=== PATIENT | female | born 1990 | race Caucasian/White ===

== ENCOUNTER → 2020-06-06 15:30 | Outpatient (BNVA) | payer OTHER, SELFPAY | PROVIDERS: PCP Internal Medicine; Referring Provider Internal Medicine; Visit Provider Student in an Organized Health Care Education/Training Program | DX: M79.7 Fibromyalgia (principal) | CPT/HCPCS: 99212 ==

== ENCOUNTER 2020-11-28 12:47 | Outpatient (REF) | payer OTHER, SELFPAY ==
--- NOTE | ~2020-11-28 | US_ITS ---
EXAMINATION: US DIAGNOSTIC ULTRASOUND BREAST, LEFT CLINICAL INFORMATION: asymmetric left breast density inferiorly COMPARISON: ultrasound of March 23, 2016 and December 23, 2015. TECHNIQUE: Ultrasound of the breast is performed with real-time franco scale imaging and color Doppler. FINDINGS: Right breast ultrasound from the 7 to 12:00 position demonstrates numerous small simple cysts. At the 9:00 position 10 cm from the nipple there is a 5 x 3 x 8 mm hypoechoic but solid-appearing well-circumscribed lesion with some distal sound enhancement and no distal sound shadowing. The lesion is wider than it is tall. No internal vascularity is identified. This has the appearance of a fibroadenoma. At the 10:00 position 4 cm from nipple there is a well-circumscribed hypoechoic lesion with some echoes within it with the appearance of a complex cyst. There is a smooth back wall with increased through sound transmission. No sound shadowing is identified. No internal vascularity is seen. This measures approximately 7 x 8 x 6 mm in size. Targeted left breast ultrasound did not demonstrate any abnormal cystic or solid mass. No region of abnormal distal sound shadowing appreciated. Six-month follow-up ultrasound of the right breast is recommended. Results are provided to the patient at time of visit by the technologist. US/US breast LT limited IMPRESSION: Probable small right breast fibroadenoma and complex cyst. 6 month follow-up ultrasound is recommended. ASSESSMENT: BI-RADS 3: Probably Benign RECOMMENDATION: Diagnostic right breast ultrasound in 6 months.
--- NOTE | ~2020-11-28 | MM_ITS ---
EXAMINATION: MM DIAGNOSTIC DIGITAL TOMOSYNTHESIS, BILATERAL US BREAST, BILATERAL CLINICAL INFORMATION: Mastodynia The lifetime risk of breast cancer based on the Tyrer-Cuzick Model is 7.5%. COMPARISON: Mammography: No mammography. Ultrasound studies dating back to 12/23/2015. TECHNIQUE: Digital breast tomosynthesis is performed in both the craniocaudal and mediolateral oblique views along with computer-aided detection (CAD). Synthesized 2D images are generated from the tomosynthesis. Bilateral targeted breast ultrasound. FINDINGS: The breasts are extremely dense, which lowers the sensitivity of mammography (ACR BI-RADS breast composition category D). There are no significant masses, abnormal calcifications, or other abnormalities. There is a region of asymmetric density seen inferior aspect of the left breast for which ultrasound was performed. Right breast ultrasound from the 7 o'clock to 12 o'clock position demonstrates numerous small simple cysts. At the 9 o'clock position, 10 cm from the nipple, there is a 5 x 3 x 8 mm hypoechoic but solid-appearing well-circumscribed lesion with some distal sound enhancement and no distal sound shadowing. The lesion is wider than it is tall. No internal vascularity is identified. This has the appearance of a fibroadenoma. At the 10 o'clock position, 4 cm from nipple, there is a well-circumscribed hypoechoic lesion with some echoes within it with the appearance of a complex cyst. There is a smooth back wall with increased through sound transmission. No sound shadowing is identified. No internal vascularity is seen. This measures approximately 7 x 8 x 6 mm in size. Targeted left breast ultrasound did not demonstrate any abnormal cystic or solid mass. No region of abnormal distal sound shadowing appreciated. Six-month followup ultrasound of the right breast is recommended. Results are provided to the patient at time of visit by the technologist. MM/MM tomosynthesis diagnostic BI IMPRESSION: Probable small right breast fibroadenoma and complex cyst. 6 month followup ultrasound is recommended. ASSESSMENT: BI-RADS 3: Probably benign. RECOMMENDATION: Diagnostic right breast ultrasound in 6 months. This patient's information was entered into a reminder system with a target due date for their next mammogram.
--- NOTE | ~2020-11-28 | US_ITS ---
EXAMINATION: TARGETED RIGHT BREAST ULTRASOUND CLINICAL INFORMATION: Mastodynia COMPARISON: Ultrasound studies dating back to December 23, 2015 TECHNIQUE: Targeted right breast ultrasound FINDINGS: Right breast ultrasound from the 7 to 12:00 position demonstrates numerous small simple cysts. At the 9:00 position 10 cm from the nipple there is a 5 x 3 x 8 mm hypoechoic but solid-appearing well-circumscribed lesion with some distal sound enhancement and no distal sound shadowing. The lesion is wider than it is tall. No internal vascularity is identified. This has the appearance of a fibroadenoma. At the 10:00 position 4 cm from nipple there is a well-circumscribed hypoechoic lesion with some echoes within it with the appearance of a complex cyst. There is a smooth back wall with increased through sound transmission. No sound shadowing is identified. No internal vascularity is seen. This measures approximately 7 x 8 x 6 mm in size. Targeted left breast ultrasound did not demonstrate any abnormal cystic or solid mass. No region of abnormal distal sound shadowing appreciated. Six-month follow-up ultrasound of the right breast is recommended. Results are provided to the patient at time of visit by the technologist. US/US breast RT complete IMPRESSION: Probable small right breast fibroadenoma and complex cyst. 6 month follow-up ultrasound is recommended. ASSESSMENT: BI-RADS 3: Probably Benign RECOMMENDATION: Diagnostic right breast ultrasound in 6 months.
== END 2020-11-28 12:48 | disposition home or self-care (01) ==
LOC: HO.MAMMO 12:47
PROVIDERS: PCP Internal Medicine; Visit Provider Internal Medicine
DX: R92.2 Inconclusive mammogram (principal); N64.4 Mastodynia
CPT/HCPCS: 76641; 76642; 77062; 77066

== ENCOUNTER 2021-07-08 10:44 | Outpatient (REF) | payer OTHER, SELFPAY ==
--- NOTE | ~2021-07-08 | US_ITS ---
EXAMINATION: US DIAGNOSTIC ULTRASOUND BREAST, RIGHT CLINICAL INFORMATION: 30-year-old for short interval six-month follow-up probable benign nodule right breast 9:00 and 10:00 position, respectively. No known family history breast cancer. TC score 8%. COMPARISON: Mammography and targeted right breast ultrasound 11/28/2020 (BI-RADS 3). Targeted right breast ultrasound 03/23/2016 (BI-RADS 2). TECHNIQUE: Ultrasound right breast is targeted to the upper outer breast. Grayscale imaging and color Doppler are performed without and with harmonics. FINDINGS: Solid nodule 9:00 position 8-10 cm from nipple is stable in size and shape measuring 8 mm in greatest dimension. This may represent fibroadenoma and will be reassessed again in 6 months (1 year follow-up surveillance). Probable complicated cyst 10:00 position 4 cm from nipple is also stable, largest dimension 8 mm. This is circumscribed and hypoechoic with scattered echogenic foci, smooth araya, and increased through-transmission of sound. No associated color flow. They will be reassessed again in 6 months (1 year follow-up surveillance). Incidental 3 mm cyst is also noted 8:00 position measuring under 5 mm. No follow-up required. No new finding. No significant changes. Results are provided to the patient at time of visit by the cutter inspector. US/US breast RT limited IMPRESSION: Solid nodule 9:00 position and probable complicated cyst 10:00 position, both just under 1 cm, stable from prior diagnostic targeted ultrasound. ASSESSMENT: BI-RADS 3: Probably Benign RECOMMENDATION: Targeted right breast ultrasound in 6 months (1 year follow-up surveillance). This patient's information was entered into a reminder system with a target due date for their next breast imaging.
== END 2021-07-08 10:45 | disposition home or self-care (01) ==
LOC: HO.MAMMO 10:44
PROVIDERS: Visit Provider Internal Medicine
DX: R92.2 Inconclusive mammogram (principal)
CPT/HCPCS: 76642

== ENCOUNTER 2021-11-24 10:43 | Outpatient (REF) | payer OTHER, SELFPAY ==
[2021-11-24 12:10] LABS: Alanine Aminotransferase 10 U/L (0-31); Albumin Level 4.2 g/dL (3.5-5.0); Alkaline Phosphatase 56 U/L (39-117); Anion Gap 16 (12-20); Aspartate Amino Transferase 18 U/L (5-31); Bilirubin Total 0.5 mg/dL (0.0-1.0); Blood Urea Nitrogen 6 mg/dL (9-16); Calcium 9.1 mg/dL (8.4-10.2); Carbon Dioxide 18 mmol/L (22-29); Chloride 106 mmol/L (96-108); Cholesterol 204 mg/dL; Estimated Glomerular Filt Rate > 60; Glucose Fasting 75 mg/dL (60-99); HDL Cholesterol 47 mg/dL; LDL Cholesterol Calculated 137 mg/dl; Potassium 4.2 mmol/L (3.3-5.1); Sodium 136 mmol/L (135-145); Total Protein 7.3 g/dL (6.5-8.0); Triglycerides 104 mg/dL
== END 2021-11-24 10:44 | disposition home or self-care (01) ==
LOC: HO.LAB 10:43
PROVIDERS: PCP Internal Medicine; Visit Provider Internal Medicine
DX: Z00.00 Encounter for general adult medical examination without abnormal findings (principal)
CPT/HCPCS: 36415; 80053; 80061

== ENCOUNTER 2022-02-06 13:39 | Outpatient (REF) | payer OTHER, SELFPAY ==
--- NOTE | ~2022-02-06 | US_ITS ---
EXAMINATION: US DIAGNOSTIC BREAST, RIGHT CLINICAL INFORMATION: Right breast followup lesions at the 9 o'clock and 10 o'clock positions. COMPARISON: 07/08/2021 and studies dating back to 11/28/2020. TECHNIQUE: Ultrasound of the breast is performed with real-time franco scale imaging and color Doppler. FINDINGS: At the 10 o'clock position of the right breast approximately 4 cm from the nipple, there is a hypoechoic well circumscribed density with minimal through sound transmission and no distal sound shadowing. No internal vascularity is identified. This measures approximately 5 x 4 x 5 mm in size. This is unchanged in appearance to previous studies. At the 9 o'clock position of the right breast approximately 8 cm from the nipple, there is again noted to be a hypoechoic circumscribed lesion with increased through sound transmission and no distal sound shadowing. No internal vascularity is identified. Both lesions may be complex cysts or solid structures. Continued 6 month followup examination suggested to ensure stability out to 2 years. Results are discussed with the patient at time of visit. US/US breast RT limited IMPRESSION: Stable appearance of right breast nodules with ultrasound. Six month followup study is suggested. ASSESSMENT: BI-RADS 3: Probably Benign. RECOMMENDATION: Diagnostic ultrasound in 6 months. This patient's information was entered into a reminder system with a target due date for their next mammogram.
== END 2022-02-06 13:40 | disposition home or self-care (01) ==
LOC: HO.MAMMO 13:39
PROVIDERS: PCP Internal Medicine; Visit Provider Internal Medicine
DX: N63.15 Unspecified lump in the right breast, overlapping quadrants (principal)
CPT/HCPCS: 76642

== ENCOUNTER 2022-05-20 14:05 | Outpatient (REF) | payer OTHER, SELFPAY ==
[2022-05-20 15:22] LABS: Influenza A PCR NEGATIVE (Negative); Influenza B PCR NEGATIVE (Negative); Resp Syncy Virus RNA Qual PCR NEGATIVE (Negative); SARS COV2 PCR INHOUSE POSITIVE (Negative)
== END 2022-05-20 14:06 | disposition home or self-care (01) ==
LOC: HO.LNP 14:05
PROVIDERS: Visit Provider Internal Medicine
DX: Z20.822 Contact with and (suspected) exposure to COVID-19 (principal); R09.89 Other specified symptoms and signs involving the circulatory and respiratory systems
CPT/HCPCS: 0241U

== ENCOUNTER 2022-08-07 12:56 | Outpatient (REF) | payer OTHER, SELFPAY ==
--- NOTE | ~2022-08-07 | US_ITS ---
EXAMINATION: US DIAGNOSTIC ULTRASOUND BREAST, RIGHT CLINICAL INFORMATION: 31-year-old for follow-up probable benign nodules right breast 9:00 and 10:00 positions, initially noted at diagnostic exam for mastodynia. No known family history breast cancer. TC score 8%. COMPARISON: Mammography 11/28/2020, right breast ultrasound 11/28/2020, 07/08/2021, 02/06/2022. TECHNIQUE: Ultrasound right breast is targeted to the inner quadrants using grayscale imaging and color Doppler without and with harmonics. FINDINGS: Solid nodule suspected fibroadenoma 9:00-10:00 position approximately 8 cm from the nipple is similar in size and contour to prior exams, measuring 0.8 cm in greatest dimension. Complicated cyst 10:00-11:00 position anterior breast is decreased in size measuring 0.5 cm compared with prior measurement 0.8 cm. There is no associated color flow. There is increased through-transmission of sound. There is a new probable benign solid nodule not previously described anterior 9:00 position 4 cm from nipple measuring approximately 0.5 cm. Margins are smooth. This may represent a fibroadenoma and will be admitted to follow-up surveillance. Results are discussed with the patient at time of visit with assistance of an certified court interpreter. US/US breast RT limited IMPRESSION: -Stable nodule 9:00-10:00 position right breast 0.8 cm, probable fibroadenoma. -Mildly complicated cyst 10:00-11:00 position decreased in size, now 0.5 cm. -Benign-appearing nodule anterior 9:00 position, 0.5 cm not previously described, probable fibroadenoma. ASSESSMENT: BI-RADS 3: Probably Benign RECOMMENDATION: Right breast ultrasound in 6 months to complete long-term surveillance of 2 nodules for follow-up and also reassess probable benign nodule not previously described. This patient's information was entered into a reminder system with a target due date for their next breast imaging.
== END 2022-08-07 12:57 | disposition home or self-care (01) ==
LOC: HO.MAMMO 12:56
PROVIDERS: PCP Internal Medicine; Visit Provider Internal Medicine
DX: N63.11 Unspecified lump in the right breast, upper outer quadrant (principal)
CPT/HCPCS: 76642

== ENCOUNTER 2022-12-07 09:54 | Outpatient (AMB) | payer OTHER, SELFPAY ==
[2022-12-07 10:02] VITALS: BP 112/74; BMI 23.2
--- NOTE | 2022-12-07 10:02 | A.OFFPC_ITS ---
Vital Signs 12/07/22 10:02 Height 5 ft 2 in Weight 127 lb BMI 23.2 BP 112/74 Blood Pressure Location Lt brachial Position Sitting Intake Visit Reasons: physical exam Intake Note: Patient here for a physical exam, increase in medication for fibromyalgia, headaches, dry skin, trouble sleeping, back pain, work note, cough, breast discomfort [place]yer Required: No Accompanied by: Self / Same As Patient Allergies pregabalin Allergy (Intermediate, Verified 12/07/22 10:20) cough tramadol Allergy (Intermediate, Verified 12/07/22 10:20) headache Medication List - Last Reconciled 12/07/22 by Nicci Agudelo MD meloxicam 7.5 mg PO DAILY PRN 90 days norgestimate-ethinyl estradiol 0.25-35 mg-mcg (Sprintec (28)) 1 tab PO DAILY Tobacco use date assessed: 12/07/22 Dental Screening Dental Screen Date: 12/07/22 Did you have a dental visit in the last 12 months?: Yes Did you have a dental problem in the last 6 months where you did not have access to dental care?: No Was dental information given to patient?: Patient has dentist HPI HPI Comments History of Present Illness Details This is a 32-year-old female with mild recurrent major depression that comes for her physical exam. Depression has been in remission. Last Pap smear was 2022 at [facility] and was normal as per patient. Complains of chronic headaches and would like to see neurology. Also has fibromyalgia and would like to increase meloxicam. Has some dry skin and will be referred to dermatology. Complains of thoracic spine pain, bilateral elbow and knee pain. [facility] Medical History (Updated 12/07/22 @ 10:39 by Nicci Agudelo MD) CRYSTAL (generalized anxiety disorder) Mild recurrent major depression Family history of diabetes mellitus Polyarthralgia Breast pain, right Fibromyalgia Surgical History History of removal of cyst History of section History of tubal ligation Family History Father Hypertension Mother Heart disease CVD (cardiovascular disease) Diabetes Maternal Grandmother Diabetes Chronic mental illness Maternal Grandfather No problems noted. Paternal Grandmother No problems noted. Paternal Grandfather No problems noted. Social History Housing: Apartment Alcohol intake: never Patient Tobacco Use Status: Never used Tobacco e-Cigarette/Vaping Use: Never Used Second Hand Smoke Exposure: No service: No Current occupational status: employed Current occupational exposures/hazards: No Cognitive needs: No Hearing needs: No Vision needs: Yes (Glasses) Questionnaire PHQ-9 Over the last 2 weeks, how often have you been bothered by any of the following problems? 1. Little interest or pleasure in doing things: several days 2. Feeling down, depressed, or hopeless: several days 3. Trouble falling or staying asleep, or sleeping too much: several days 4. Feeling tired or having little energy: several days 5. Poor appetite or overeating: several days 6. Feeling bad about yourself - or that you are a failure or have let yourself or your family down: not at all 7. Trouble concentrating on things, such as reading the newspaper or watching television: not at all 8. Moving or speaking so slowly that other people could have noticed. Or the opposite - being so fidgety or restless that you have been moving around a lot more than usual: not at all 9. Thoughts that you would be better off or of hurting yourself in some way: not at all Total score: 5 Depression Screening Interpretation: Positive Depression Screening Follow-up: Existing condition 27421 - PHQ-9 Billing: Yes Source: Developed by Drs. David Gil, Regine Torre, Job Polo and colleagues, with an educational adriana from [employer]. Thrive Questionnaire Date Thrive assessed: 12/07/22 I am a: Patient What is your living situation today?: I have a steady place to live Within the past 12 months, did the food you bought not last and you didn't have the money to get more?: Never true Within the past 12 months, did you worry whether your food would run out before you got money to buy more?: Never true Do you have trouble paying for medicines?: No Do you have trouble getting transportation to medical appointments?: No Do you have trouble paying your heating and electricity bill?: No Do you have trouble taking care of your child, family member or friend?: No Do you have trouble with day-to-day activities such as bathing, preparing meals, shopping, managing finances, etc.?: No Are you currently unemployed and looking for a job?: No Are you interested in more education?: No Please select the resources that you would like help with: None Currently or been in a relationship where the following occur: no concerns reported AUDIT C Alcohol Use Questionnaire (AUDIT-C) 1. How often do you have a drink containing alcohol?: Never Total Score: 0 Score Reviewed/Action Taken: No CRYSTAL-7 AMB Questionnaire CRYSTAL-7 Date CRYSTAL - 7 assessed: 12/07/22 Feeling nervous, anxious, or on edge: 1 = Several days Not being able to stop or control worryin = Not at all Worrying too much about different things: 1 = Several days Trouble relaxin = Several days Being so restless that it is hard to sit still: 0 = Not at all Becoming easily annoyed or irritable: 1 = Several days Feeling afraid as if something awful might happen: 1 = Several days Total CRYSTAL-7 score (0-4 normal; 5-9 mild; 10-14 moderate; 15-21 severe): 5 Source: Developed by Drs. David Gil, Regine Torre, Job Polo and colleagues, with an educational adriana from [employer]. CRYSTAL-7 Assessment Billing CRYSTAL-7 Assessment Tool: CRYSTAL-7 Assessment 61065 Review of Systems Const All systems reviewed & are unremarkable except as noted in HPI and below Eyes Reports no additional complaints, Denies change in vision and Denies other visual disturbances Card Denies chest pain at rest, Denies chest pain with activity, Denies edema, Denies irregular heart rhythm, Denies claudication, Denies dyspnea, Denies dyspnea on exertion, Denies orthopnea, Denies paroxysmal nocturnal dyspnea and Denies slow heart rate Resp Denies cough, Denies dyspnea and Denies dyspnea on exertion GI Denies abdominal pain, Denies change in bowel habits, Denies excessive flatus, Denies nausea and Denies vomiting Denies urinary incontinence, Denies urinary hesitancy and Denies urinary urgency Musc Denies abnormal gait, Denies atrophy, Denies deformity and Denies limited range of motion Skin/Breast Denies bleeding lesions, Denies changing lesions and Denies rash Neuro Denies abnormal gait and Denies lack of coordination Physical exam (Primary Care) Vital Signs: Last Vital Signs BP 112/74 12/07/22 10:02 BMI result Body Mass Index 23.2 Tobacco/Smoking Status: Tobacco use Status Tobacco use date assessed 12/07/22 12/07/22 10:09 Patient Tobacco Use Status Never used Tobacco 12/07/22 10:09 e-Cigarette/Vaping Use Never Used 12/07/22 10:09 PHQ-9: PHQ-9 Score PHQ-9: Total score 5 12/07/22 10:39 Depression Screening Interpretation: Positive Depression Screening Follow-up: Existing condition Thrive Assessment: Date of Thrive Assessment Date Thrive assessed 12/07/22 12/07/22 10:09 Currently or been in a relationship where the following occur: no concerns reported Const Orientation/consciousness: patient oriented x3 HENMT Head: Yes normal to inspection, Yes normocephalic and Yes atraumatic Ears: external ears normal Eyes General: appearance normal, both eyes and all related structures Eyelids: Yes eyelids normal Conjunctivae: conjunctivae normal Neck Neck: Yes normal visual inspection and Yes supple Resp Effort & Inspection: normal respiratory effort Auscultation: clear to auscultation bilaterally Cardio Jugular venous distension: no JVD Rate: regular rate Rhythm: regular rhythm Heart sounds: S1 normal heart sound present and S2 normal heart sound present GI Inspection: Yes normal to inspection Palpation (GI): Soft to palpation and nontender Auscultation: normal bowel sounds Skin General skin exam: no rashes or lesions noted Neuro General: patient oriented x3 and no focal motor deficits Extrem General: Yes full ROM Psych Appearance: grossly normal Office Procedures Flu Questionnaire Does the patient have a severe egg allergy?: No Immunizations flu vacc [id number] 6mos up(PF) 60 mcg(15 mcgx4)/0.5 mL IM syringe Performing Provider: Nicci Agudelo MD [facility] Documented (not given) by: MARELY Nieves on 12/07/22 10:39 Reason Not Given: Patient Refused Assessment and Plan Assessment & Plan (1) Encounter for physical examination: Code(s): Z00.00 - Encounter for general adult medical examination without abnormal findings Plan: Repeat in a year (2) Mild recurrent major depression: Code(s): F33.0 - Major depressive disorder, recurrent, mild Plan: In remission Orders: Orders XR thoracic spine 2V Today M54.6 - Pain in thoracic spine Influenza [id number] Immunization Today Z23 - Encounter for immunization XR knee RT 2V Today M25.561 - Pain in right knee XR elbow LT 2V Today M25.522 - Pain in left elbow XR knee LT 2V Today M25.562 - Pain in left knee XR elbow RT 2V Today M25.521 - Pain in right elbow Referrals Neurology Referral G89.29 - Other chronic pain, R51.9 - Headache, unspecified Dermatology Referral L85.3 - Xerosis cutis Medications: New duloxetine 30 mg PO DAILY 90 caps 0RF 90 days M79.7 - Fibromyalgia guaifenesin ER (Mucinex) 600 mg PO Q12H PRN 10 tabs 0RF congestion 5 days Changed From meloxicam 7.5 mg PO DAILY 90 days PRN 90 tabs 1RF pain To meloxicam 7.5 mg PO BID PRN 180 tabs 1RF pain 90 days Coding Level of Care Code Est Pt Prev Care [id number]([id number]) Diagnoses Encounter for physical examination Z00.00 Mild recurrent major depression F33.0 Additional Codes CRYSTAL-7 Assessment Billing - CRYSTAL-7 Assessment Tool: CRYSTAL-7 Assessment 69225 ([id number]) Time Spent (min) 32
== END 2022-12-07 10:37 | disposition home or self-care (01) ==
PROVIDERS: Visit Provider Internal Medicine
DX: Z00.00 Encounter for general adult medical examination without abnormal findings (principal); F33.0 Major depressive disorder, recurrent, mild; Z23 Encounter for immunization
CPT/HCPCS: 99395

== ENCOUNTER 2022-12-07 10:53 | Outpatient (REF) | payer OTHER, SELFPAY ==
--- NOTE | ~2022-12-07 | XR_ITS ---
STUDY: Thoracic spine, bilateral elbows, bilateral knees INDICATION: Thoracic spine, bilateral elbow and knee pain COMPARISON: None TECHNIQUE: 3 view thoracic spine 3 view each elbow, 2 view each knee FINDINGS: Thoracic spine: Trace thoracolumbar scoliosis, otherwise alignment is normal. Vertebral bodies and intervertebral discs are maintained in height. Pedicles and visualized ribs are intact. No focal paravertebral soft tissue swelling seen. Subcentimeter calcification left base may be granuloma. Bilateral elbows: Alignment and articulations are normal. No fracture or dislocation bilaterally. No joint effusions. Bilateral knees: No fracture, dislocation or joint effusion bilaterally. No significant joint space narrowings. Alignment and articulations are maintained. XR/XR thoracic spine 2V IMPRESSION: Unremarkable thoracic spine, bilateral elbows and knees.
--- NOTE | ~2022-12-07 | XR_ITS ---
STUDY: Thoracic spine, bilateral elbows, bilateral knees INDICATION: Thoracic spine, bilateral elbow and knee pain COMPARISON: None TECHNIQUE: 3 view thoracic spine 3 view each elbow, 2 view each knee FINDINGS: Thoracic spine: Trace thoracolumbar scoliosis, otherwise alignment is normal. Vertebral bodies and intervertebral discs are maintained in height. Pedicles and visualized ribs are intact. No focal paravertebral soft tissue swelling seen. Subcentimeter calcification left base may be granuloma. Bilateral elbows: Alignment and articulations are normal. No fracture or dislocation bilaterally. No joint effusions. Bilateral knees: No fracture, dislocation or joint effusion bilaterally. No significant joint space narrowings. Alignment and articulations are maintained. XR/XR knee LT 2V IMPRESSION: Unremarkable thoracic spine, bilateral elbows and knees.
--- NOTE | ~2022-12-07 | XR_ITS ---
STUDY: Thoracic spine, bilateral elbows, bilateral knees INDICATION: Thoracic spine, bilateral elbow and knee pain COMPARISON: None TECHNIQUE: 3 view thoracic spine 3 view each elbow, 2 view each knee FINDINGS: Thoracic spine: Trace thoracolumbar scoliosis, otherwise alignment is normal. Vertebral bodies and intervertebral discs are maintained in height. Pedicles and visualized ribs are intact. No focal paravertebral soft tissue swelling seen. Subcentimeter calcification left base may be granuloma. Bilateral elbows: Alignment and articulations are normal. No fracture or dislocation bilaterally. No joint effusions. Bilateral knees: No fracture, dislocation or joint effusion bilaterally. No significant joint space narrowings. Alignment and articulations are maintained. XR/XR elbow RT 2V IMPRESSION: Unremarkable thoracic spine, bilateral elbows and knees.
--- NOTE | ~2022-12-07 | XR_ITS ---
STUDY: Thoracic spine, bilateral elbows, bilateral knees INDICATION: Thoracic spine, bilateral elbow and knee pain COMPARISON: None TECHNIQUE: 3 view thoracic spine 3 view each elbow, 2 view each knee FINDINGS: Thoracic spine: Trace thoracolumbar scoliosis, otherwise alignment is normal. Vertebral bodies and intervertebral discs are maintained in height. Pedicles and visualized ribs are intact. No focal paravertebral soft tissue swelling seen. Subcentimeter calcification left base may be granuloma. Bilateral elbows: Alignment and articulations are normal. No fracture or dislocation bilaterally. No joint effusions. Bilateral knees: No fracture, dislocation or joint effusion bilaterally. No significant joint space narrowings. Alignment and articulations are maintained. XR/XR knee RT 2V IMPRESSION: Unremarkable thoracic spine, bilateral elbows and knees.
--- NOTE | ~2022-12-07 | XR_ITS ---
STUDY: Thoracic spine, bilateral elbows, bilateral knees INDICATION: Thoracic spine, bilateral elbow and knee pain COMPARISON: None TECHNIQUE: 3 view thoracic spine 3 view each elbow, 2 view each knee FINDINGS: Thoracic spine: Trace thoracolumbar scoliosis, otherwise alignment is normal. Vertebral bodies and intervertebral discs are maintained in height. Pedicles and visualized ribs are intact. No focal paravertebral soft tissue swelling seen. Subcentimeter calcification left base may be granuloma. Bilateral elbows: Alignment and articulations are normal. No fracture or dislocation bilaterally. No joint effusions. Bilateral knees: No fracture, dislocation or joint effusion bilaterally. No significant joint space narrowings. Alignment and articulations are maintained. XR/XR elbow LT 2V IMPRESSION: Unremarkable thoracic spine, bilateral elbows and knees.
== END 2022-12-07 10:54 | disposition home or self-care (01) ==
LOC: HO.XRAY 10:53
PROVIDERS: PCP Internal Medicine; Visit Provider Internal Medicine
DX: M25.522 Pain in left elbow (principal); M25.521 Pain in right elbow; M25.561 Pain in right knee; M25.562 Pain in left knee; M54.6 Pain in thoracic spine
CPT/HCPCS: 72070; 73070; 73560

== ENCOUNTER 2023-03-26 09:50 | Outpatient (AMB) | payer OTHER, SELFPAY ==
--- NOTE | 2023-03-26 10:06 | A.OFFVIS_ITS ---
Intake Vital Signs 03/26/23 10:07 Height 5 ft 2 in Weight 131 lb 2 oz BMI 24.0 BP 122/74 Blood Pressure Location Rt brachial Position Sitting Pulse 76 Pulse Source Pulse Oximeter Pulse Oximetry (%) 100 Oxygen Delivery Method Room Air Intake Visit Reasons: [id number] Intake Note: Patient presents for headaches. I get constant strong headaches,everyday Allergies pregabalin Allergy (Intermediate, Verified 03/26/23 10:09) cough tramadol Allergy (Intermediate, Verified 03/26/23 10:09) headache Medication List - Last Reconciled 03/26/23 by Maddy Murray, EBENEZER duloxetine 30 mg PO DAILY 90 days guaifenesin ER (Mucinex) 600 mg PO Q12H PRN 5 days meloxicam 7.5 mg PO BID PRN 90 days norgestimate-ethinyl estradiol 0.25-35 mg-mcg (Sprintec (28)) 1 tab PO DAILY HPI HPI Comments History of Present Illness Details Right-handed 32-yr-old female presents for new pt evaluation of headache disorder. She has had headaches since childhood, but for many years she has had a constant headache, which does vary throughout the day. Pertinent patient endorsements: Fibromyalgia, neck and back pain. Memory difficulties. Weight gain Constipation Endometriosis, Depression and anxiety, Concussion x2 in early adolescents in late 20s. At age 28, had 1 episode of brief loss of consciousness x's < 5 min, associated with posturing, and postictal fatigue. No interictal tongue biting or incontinence. She was tried on an AED for some time, but is no longer on any. Sleep difficulties including difficulty initiating and maintaining sleep, but denies snoring or apneas or gasping arousals. Pertinent denies include: Denies diplopia. Denies history of clotting disorders, thyroid disease, diabetes, cardiovascular disorders. Headache questionnaire: Preceding causes? Denies any specific precipitating causes Previous work-up? Brain MRI- showed pineal cyst Typical headache characteristics: Prodrome symptoms? None Aura? Colored spots and blurry vision Pain intensity? Moderate to severe Location, quality, characteristics? Pulsating, pressure, stabbing headache in either right or left sided, temporal, right greater than left, retro-orbital, top of the head, back of the head. In rarely frontal region. Associated symptoms? Photophobia, phonophobia, allodynia, nausea, not great and space dizziness, brain fog, fatigue, activity intolerance. Focal weakness, Parethesias, Autonomic s/s? Bilateral watery eyes, droopy eyelid Postdrome? Unsure Triggers? Lack of sleep, not eating, stress, weather changes Any positional, valsalva, exertional, sexual activity triggers? Heavy lifting can increase headache pressure Menstrual triggers? In the past, but not currently Time of day? No specific time of day Duration? Daily Frequency? Daily How does headache impact your life? Interferes with daily activities Second headache type characteristics: Severe, Right greater than left unilateral shocking pain, which lasts 1-2 minutes. It occurs 2-3 times per week. Current acute medication use/interventions: Ibuprofen 400 mg q.h.s. and most days as well. Previous acute medication use: Naproxen caused GI upset. Tramadol caused headache. Current preventative medication use: Duloxetine 30 mg daily- for mood and fibromyalgia. Previous preventative medication use: Pregabalin caused cough. Non-pharmacological interventions: Rest Family planning? None Family history of migraine or other headache disorder: Sister, daughter, uncle [facility] Medical History (Updated 03/26/23 @ 11:29 by EBENEZER Rodriguez) CRYSTAL (generalized anxiety disorder) Mild recurrent major depression Family history of diabetes mellitus Polyarthralgia Breast pain, right Fibromyalgia Surgical History History of removal of cyst History of section History of tubal ligation Family History Father Hypertension Mother Heart disease CVD (cardiovascular disease) Diabetes Maternal Grandmother Diabetes Chronic mental illness Maternal Grandfather No problems noted. Paternal Grandmother No problems noted. Paternal Grandfather No problems noted. Social History Housing: Apartment Alcohol intake: never Patient Tobacco Use Status: Never used Tobacco e-Cigarette/Vaping Use: Never Used Second Hand Smoke Exposure: No service: No Current occupational status: employed Current occupational exposures/hazards: No Cognitive needs: No Hearing needs: No Vision needs: Yes (Glasses) Review of Systems Const Details: See scanned ROS form Physical Exam Vital Signs: Last Vital Signs Pulse 76 03/26/23 10:07 BP 122/74 03/26/23 10:07 Pulse Ox 100 03/26/23 10:07 Oxygen Delivery Method Room Air 03/26/23 10:07 BMI result Body Mass Index 24.0 Const Orientation/consciousness: patient oriented x3 HEENT Head: Yes normocephalic Resp Effort & Inspection: normal respiratory effort and able to speak in complete sentences Neuro Other: Bilateral posterior cervical tightness and tenderness. Frontal scalp tenderness to touch. General: patient oriented x3 Cranial nerves: Yes CN's II-XII intact bilaterally Cognition (Neuro): normal cognition Gait exam (Neuro): Normal gait present Motor exam (neuro): 5/5 motor strength present throughout Deep tendon reflexes (DTR's): Right triceps reflex intensity grade: 2+, Left triceps reflex intensity grade: 2+, Rt Biceps (C5, C6): 2+, Left biceps reflex intensity grade: 2+, Right brachioradialis reflex intensity grade: 2+, Left brachioradialis reflex intensity grade: 2+, Right patellar reflex intensity grade: 2+ and Left patellar reflex intensity grade: 2+ Coordination: [id number] test normal, tandem gait normal and Romberg test negative Pupils: Normal pupillary reactivity/response: bilateral Psych Appearance: grossly normal Mental Status: mental status grossly normal Speech and movement: Normal speech and movement present Affect: normal affect Attitude: cooperative Thought process: Normal thought process present Assessment & Plan Assessment & Plan (1) Worsening headaches: Code(s): R51.9 - Headache, unspecified (2) Convulsion: Code(s): R56.9 - Unspecified convulsions (3) Stabbing headache: Code(s): G44.85 - Primary stabbing headache (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 Future considerations: Sleep evaluation For overall headache management: Discussed importance of good self-care, including but not limited to maintaining a healthy diet, adequate fluid intake, adequate sleep, and engaging in regular physical activity. For headache triggers: Track headaches, especially after any treatment regimen changes. Migraine Curetis is one of many headache tracking apps. For acute headache treatment: Discussed importance of taking acute medications at the first sign of headache, however stressed importance of avoiding acute medication overuse (especially with combined headache medications). Trial sumatriptan p.r.n. may adjunct with ibuprofen. However, advised to decrease ibuprofen use overall. Reviewed potential adverse effects of triptans, including but not limited to nausea, fatigue, chest tightness/tingling (usually passes within a few minutes), medication overuse headaches. Previous acute migraine medication trials: Naproxen caused GI upset Acute migraine medication contraindications: None at this time For headache prevention medication: Discussed that preventative medications should be taken routinely as prescribed for best effect, it may take several weeks for full effect to take effect. Start Riboflavin 400mg qam Start Magnesium 400mg qhs Start topiramate 25-50 mg q.h.s. Continue duloxetine 30 mg q.d. as ordered- for mood and fibromyalgia Reviewed potential adverse effects of Topiramate, including but not limited to fatigue, cognitive changes, paresthesias (tingling), vision changes, kidney stones. Previous migraine prevention medication trials: Pregabalin caused cough. Migraine prevention medication contraindications: Would use caution in constipating agents, such as Aimovig or Qulipta. Pt to follow-up in 1.5-2 months or sooner prn. Orders: Orders MR head/brain wo/w con 03/26/23 R51.9 - Headache, unspecified, R56.9 - Unspecified convulsions, G44.85 - Primary stabbing headache, E34.8 - Other specified endocrine disorders Medications: New sumatriptan succinate 50 - 100 mg orally at onset of headache, may repeat in 2 hrs PRN; max 2 tabs per day or 4 tabs/week (may take with Ibuprofen) 12 tabs 6RF migraine headache 30 days riboflavin (vitamin B2) 400 mg PO DAILY 30 tabs 6RF 30 days magnesium oxide may hold for loose stools 400 mg PO BEDTIME 30 tabs 6RF 30 days topiramate 25 - 50 mg (1 - 2 x 25 mg) PO BEDTIME 60 tabs 3RF 30 days Coding Level of Care Code New Pt Level 4 (04712) Diagnoses Worsening headaches R51.9 Convulsion R56.9 Stabbing headache G44.85 Pineal gland cyst E34.8
[2023-03-26 10:07] VITALS: BP 122/74; PULSE 76; O2SAT 100; BMI 24.0
== END 2023-03-26 11:39 | disposition home or self-care (01) ==
PROVIDERS: PCP Internal Medicine; Visit Provider Nurse Practitioner Family
DX: R56.9 Unspecified convulsions (principal); G44.85 Primary stabbing headache; E34.8 Other specified endocrine disorders
CPT/HCPCS: 99204

== ENCOUNTER → 2023-03-26 09:50 | Outpatient (BNVA) | payer OTHER, SELFPAY | PROVIDERS: PCP Internal Medicine; Visit Provider Nurse Practitioner Family | DX: G44.85 Primary stabbing headache (principal); R56.9 Unspecified convulsions; E34.8 Other specified endocrine disorders | CPT/HCPCS: 99202 ==

== ENCOUNTER 2023-03-29 10:53 | Outpatient (REF) | payer OTHER, SELFPAY ==
--- NOTE | ~2023-03-29 | US_ITS ---
EXAMINATION: US DIAGNOSTIC ULTRASOUND BREAST, RIGHT CLINICAL INFORMATION: 32-year-old female for follow-up 3 small nodules right breast at the 9:00, 10:00, and 11:00 axes. COMPARISON: Mammography 11/28/2020, right breast ultrasound 11/28/2020, 07/08/2021, 02/06/2022, 08/07/2022 . TECHNIQUE: Ultrasound of the right breast is performed with real-time franco scale imaging and color Doppler. Attention was given to the 9:00 through 11:00 axes. FINDINGS: At the 9:00 axis, there is a 4 mm hypoechoic mass, 4 cm from the nipple, previously 5 mm, smaller and stable. At the 9-10 o'clock axis, there is an oval complex cyst or hypoechoic mass with good through transmission, measuring 5 mm in diameter, previously over 6. This is also smaller. At the 11:00 axis, 2 cm from the nipple, there is a 4 mm hypoechoic nodule or complex cyst with good through transmission, also smaller than prior studies where it measured up to 5 mm. No new abnormalities detected. US/US breast RT limited mamm only IMPRESSION: All 3 small masses/complex cysts on the current study at the 9-11 o'clock axes right breast are smaller and stable over 2 years. This is consistent with benignity. No further follow-up recommended. Recommend the patient resume routine annual screening mammography at age 38. ASSESSMENT: BI-RADS 2 - Benign Findings RECOMMENDATION: Mammo at 38 or earlier if clinically needed
== END 2023-03-29 10:54 | disposition home or self-care (01) ==
LOC: HO.MAMMO 10:53
PROVIDERS: PCP Internal Medicine; Visit Provider Internal Medicine
DX: N63.15 Unspecified lump in the right breast, overlapping quadrants (principal)
CPT/HCPCS: 76642

== ENCOUNTER → 2023-03-29 11:30 | Outpatient (BNV) | payer OTHER, SELFPAY | PROVIDERS: PCP Internal Medicine; Visit Provider Radiology Diagnostic Radiology | DX: N63.10 Unspecified lump in the right breast, unspecified quadrant (principal) | CPT/HCPCS: 76642 ==

== ENCOUNTER 2023-06-04 09:33 | Outpatient (REF) | payer OTHER, SELFPAY ==
--- NOTE | ~2023-06-04 | MR_ITS ---
EXAMINATION: MR BRAIN WITHOUT CONTRAST CLINICAL INFORMATION: Headache. COMPARISON: CT head from 02/09/2018. TECHNIQUE: MRI of the brain was obtained using routine sequences without contrast. Patient declined administration of contrast at the time of exam. FINDINGS: No focal restricted diffusion is demonstrated to suggest acute or subacute cerebral ischemia. No evidence of acute or chronic hemorrhagic products on heme-sensitive imaging. Few nonspecific scattered foci of T2 FLAIR hyperintensity in the deep white matter of the bilateral frontal lobes. No additional parenchymal signal abnormalities. The ventricles are normal in morphology and size. No abnormal mass effect. No midline shift. Normal appearance of the pituitary gland. The suprasellar cistern remains widely patent. Normal positioning of the cerebellar tonsils. Normal arterial and venous vascular flow voids are present. Normal, homogeneous marrow signal. Mild mucosal thickening of the paranasal sinuses. No signal abnormalities within the mastoids. MR/MR head/brain wo con IMPRESSION: 1. No acute intracranial abnormalities. 2. Minimal nonspecific white matter changes.
== END 2023-06-04 09:34 | disposition home or self-care (01) ==
LOC: HO.MRI 09:33
PROVIDERS: PCP Internal Medicine; Visit Provider Nurse Practitioner Family
DX: G44.85 Primary stabbing headache (principal); R56.9 Unspecified convulsions
CPT/HCPCS: 70551

== ENCOUNTER 2024-03-28 13:41 | Outpatient (AMB) | payer OTHER, SELFPAY ==
--- NOTE | 2024-03-28 13:45 | A.OFFPC_ITS ---
Vital Signs 03/28/24 13:46 Height 5 ft 2 in Weight 137 lb BMI 25.1 BP 126/80 Blood Pressure Location Lt brachial Position Sitting Temp 97.1 F Temp Source Temporal Artery Scan Intake Visit Reasons: Annual Exam Intake Note: Patient here for a physical exam Hospice Home Health Aide Required: Yes Hospice Home Health Aide Language: Phosph[employer]ertil[employer] Supervisor Name: Nicci Agduelo MD Information Interpreted: non-clinical & clinical Accompanied by: Self / Same As Patient Allergies pregabalin Allergy (Intermediate, Verified 03/28/24 14:04) cough tramadol Allergy (Intermediate, Verified 03/28/24 14:04) headache Medication List - Last Reconciled 03/28/24 by Nicci Agudelo MD cefpodoxime mg PO duloxetine 30 mg PO DAILY 90 days magnesium oxide 400 mg PO BEDTIME 30 days meloxicam 7.5 mg PO BID PRN 90 days norgestimate-ethinyl estradiol 0.25-35 mg-mcg (Sprintec (28)) 1 tab PO DAILY sumatriptan succinate 50 - 100 mg orally at onset of headache, may repeat in 2 hrs PRN; max 2 tabs per day or 4 tabs/week (may take with Ibuprofen) 30 days tacrolimus 0.1% topical topiramate 25 - 50 mg (1 - 2 x 25 mg) PO BEDTIME 30 days Tobacco use date assessed: 03/28/24 Dental Screening Dental Screen Date: 03/28/24 Did you have a dental visit in the last 12 months?: Yes Did you have a dental problem in the last 6 months where you did not have access to dental care?: No Was dental information given to patient?: Patient has dentist HPI HPI Comments History of Present Illness Details The patient is a 33-year-old female presenting for her physical exam. She has concerns of ongoing fibromyalgia, knee pain, sleep disturbances, and gastrointestinal bleeding. The fibromyalgia symptoms include persistent headaches, dizziness, nausea, and muscle pain, with medications such as ibuprofen, gabapentin, and duloxetine previously trialed, showing variable effectiveness. These symptoms have been impacting the patient's quality of life by causing fatigue and restlessness. The patient reports knee pain primarily in one knee, occasionally affecting both, which limits mobility. She has not seen an talent management specialist for this issue. In terms of sleep disturbances, the patient describes awakening with a sensation of choking, as well as biting her tongue or cheek during sleep, resulting in exhaustion and discomfort. She severely dozed off while watching TV, sitting and reading, after lunch and laying dows in the afternoon with [place] Score Scale of 12. Gastrointestinal bleeding was described as blood in the stool on several occasions, although the patient has not consulted a porcelain slusher or visite d an emergency department for this issue. Additionally, the patient reports stress-induced symptoms leading to dizziness, light-headedness, near syncope, and an episode in which she required assistance moving to a different room. [facility] Medical History (Updated 03/28/24 @ 14:26 by Nicci Agudelo MD) Convulsion CRYSTAL (generalized anxiety disorder) Mild recurrent major depression Family history of diabetes mellitus Polyarthralgia Breast pain, right Fibromyalgia Surgical History History of removal of cyst History of section History of tubal ligation Family History Father Hypertension Mother Heart disease CVD (cardiovascular disease) Diabetes Maternal Grandmother Diabetes Chronic mental illness Maternal Grandfather No problems noted. Paternal Grandmother No problems noted. Paternal Grandfather No problems noted. Social History Housing: Apartment Alcohol intake: never Patient Tobacco Use Status: Never used Tobacco e-Cigarette/Vaping Use: Never Used Second Hand Smoke Exposure: No service: No Current occupational status: unemployed Cognitive needs: No Hearing needs: No Vision needs: Yes (Glasses) Questionnaire PHQ-9 Over the last 2 weeks, how often have you been bothered by any of the following problems? 1. Little interest or pleasure in doing things: nearly every day 2. Feeling down, depressed, or hopeless: nearly every day 3. Trouble falling or staying asleep, or sleeping too much: nearly every day 4. Feeling tired or having little energy: nearly every day 5. Poor appetite or overeating: several days 6. Feeling bad about yourself - or that you are a failure or have let yourself or your family down: nearly every day 7. Trouble concentrating on things, such as reading the newspaper or watching television: nearly every day 8. Moving or speaking so slowly that other people could have noticed. Or the opposite - being so fidgety or restless that you have been moving around a lot more than usual: several days 9. Thoughts that you would be better off or of hurting yourself in some way: not at all Total score: 20 Depression Screening Interpretation: Positive (no suicidal thoughts) Depression Screening Follow-up: Existing condition, In treatment and Follow-up Visit Requested Depression Screening Done: Yes 61877 - PHQ-9 Billing: Yes Source: Developed by Drs. David Gil, Regine Torre, Job Polo and colleagues, with an educational adriana from [employer]. Thrive Questionnaire Date Thrive assessed: 03/28/24 I am a: Patient What is your living situation today?: I have a steady place to live Within the past 12 months, did the food you bought not last and you didn't have the money to get more?: Sometimes True Within the past 12 months, did you worry whether your food would run out before you got money to buy more?: Sometimes True Do you have trouble paying for medicines?: No Do you have trouble getting transportation to medical appointments?: No Do you have trouble paying your heating and electricity bill?: I choose not to answer this question Do you have trouble taking care of your child, family member or friend?: No Do you have trouble with day-to-day activities such as bathing, preparing meals, shopping, managing finances, etc.?: I choose not to answer this question Are you currently unemployed and looking for a job?: Yes Are you interested in more education?: I choose not to answer this question Please select the resources that you would like help with: Utilities and Education Currently or been in a relationship where the following occur: No concerns reported THRIVE Score: 2 AUDIT C Alcohol Use Questionnaire (AUDIT-C) 1. How often do you have a drink containing alcohol?: Never Total Score: 0 Score Reviewed/Action Taken: No CRYSTAL-7 AMB Questionnaire CRYSTAL-7 Date CRYSTAL - 7 assessed: 03/28/24 Feeling nervous, anxious, or on edge: 2 = More than half the days Not being able to stop or control worryin = More than half the days Worrying too much about different things: 2 = More than half the days Trouble relaxin = More than half the days Being so restless that it is hard to sit still: 1 = Several days Becoming easily annoyed or irritable: 2 = More than half the days Feeling afraid as if something awful might happen: 2 = More than half the days Total CRYSTAL-7 score (0-4 normal; 5-9 mild; 10-14 moderate; 15-21 severe): 13 Source: Developed by Drs. Dvaid Gil, Regine Torre, Job Polo and colleagues, with an educational adriana from [employer]. CRYSTAL-7 Assessment Billing CRYSTAL-7 Assessment Tool: CRYSTAL-7 Assessment 74570 Review of Systems Const All systems reviewed & are unremarkable except as noted in HPI and below Card Denies chest pain at rest, Denies chest pain with activity, Denies edema, Denies irregular heart rhythm, Denies claudication, Denies dyspnea, Denies dyspnea on exertion, Denies orthopnea, Denies paroxysmal nocturnal dyspnea and Denies slow heart rate Resp Denies cough, Denies dyspnea and Denies dyspnea on exertion Physical exam (Primary Care) Vital Signs: Last Vital Signs Temp 97.1 F 03/28/24 13:46 BP 126/80 03/28/24 13:46 BMI result Body Mass Index 25.1 Tobacco/Smoking Status: Tobacco use Status Tobacco use date assessed 03/28/24 03/28/24 13:51 Patient Tobacco Use Status Never used Tobacco 03/28/24 13:51 e-Cigarette/Vaping Use Never Used 03/28/24 13:51 PHQ-9: PHQ-9 Score PHQ-9: Total score 20 03/28/24 13:51 Depression Screening Interpretation: Positive (no suicidal thoughts) Depression Screening Follow-up: Existing condition, In treatment and Follow-up Visit Requested Thrive Assessment: Date of Thrive Assessment Date Thrive assessed 03/28/24 03/28/24 13:51 Currently or been in a relationship where the following occur: No concerns reported Const Orientation/consciousness: patient oriented x3 HENMT Head: Yes normal to inspection, Yes normocephalic and Yes atraumatic Ears: external ears normal Eyes General: appearance normal, both eyes and all related structures Eyelids: Yes eyelids normal Conjunctivae: conjunctivae normal Neck Neck: Yes normal visual inspection and Yes supple Resp Effort & Inspection: normal respiratory effort Auscultation: clear to auscultation bilaterally Cardio Jugular venous distension: no JVD Rate: regular rate Rhythm: regular rhythm Heart sounds: S1 normal heart sound present and S2 normal heart sound present GI Inspection: Yes normal to inspection Palpation (GI): Soft to palpation and nontender Auscultation: normal bowel sounds Skin General skin exam: no rashes or lesions noted Neuro General: patient oriented x3 and no focal motor deficits Extrem General: Yes full ROM Psych Appearance: grossly normal Office Procedures Flu Questionnaire Does the patient have a severe egg allergy?: No Immunizations Fluarix Triv [id number] (PF) 45 mcg (15 mcg x 3)/0.5 mL IM syringe Performing Provider: Nicci Agudelo MD [facility] Documented (not given) by: MARELY Nieves on 03/28/24 13:51 Reason Not Given: Patient Refused Coding Level of Care Code Est Pt Level 4 (94906) Est Pt Prev Care 18-39y(89836) Diagnoses Encounter for physical examination Z00.00 CRYSTAL (generalized anxiety disorder) F41.1 Fibromyalgia M79.7 Moderate recurrent major depression F33.1 Daytime somnolence R40.0 Bilateral knee pain M25.561; M25.562 Fatigue R53.83 Bloody stools K92.1 Chronic headaches R51.9; G89.29 Additional Codes PHQ-9 - 44234 - PHQ-9 Billing: Yes ([id number]) CRYSTAL-7 Assessment Billing - CRYSTAL-7 Assessment Tool: CRYSTAL-7 Assessment 37393 ([id number]) Time Spent (min) 40 Assessment & Plan Assessment & Plan (1) Encounter for physical examination: Code(s): Z00.00 - Encounter for general adult medical examination without abnormal findi ngs Category: Medical (2) CRYSTAL (generalized anxiety disorder): Code(s): F41.1 - Generalized anxiety disorder Category: Medical (3) Fibromyalgia: Code(s): M79.7 - Fibromyalgia Category: Medical (4) Moderate recurrent major depression: Code(s): F33.1 - Major depressive disorder, recurrent, moderate Category: Medical (5) Daytime somnolence: Code(s): R40.0 - Somnolence Category: Medical (6) Bilateral knee pain: Code(s): M25.561 - Pain in right knee; M25.562 - Pain in left knee Category: Medical (7) Fatigue: Code(s): R53.83 - Other fatigue Category: Medical (8) Bloody stools: Code(s): K92.1 - Melena Category: Medical (9) Chronic headaches: Code(s): R51.9 - Headache, unspecified; G89.29 - Other chronic pain Category: Medical Plan - Continue management of fibromyalgia symptoms with cI discussed with the patient the management of her fibromyalgia with current medications, including gabapentin and duloxetine, focusing on adjusting doses as necessary to improve symptom control. I recommended a referral to an talent management specialist to address knee pain and potential physical therapy. A sleep study was suggested to understand the underlying cause of her sleep disturbances further. We discussed eliminating lactose from her diet owing to lactose intolerance. I advised monitoring gastrointestinal bleeding closely and seeking further medical advice if symptoms worsen. The importance of stress management and support through lifestyle modifications was emphasized. urrent medications; consider altering doses if needed - Referral to talent management specialist for evaluation of knee pain and potential physical therapy - Referral for a formal sleep study to evaluate sleep disturbances - Advise elimination of lactose from the diet due to lactose intolerance concerns - Monitor gastrointestinal bleeding; advise medical consultation if symptoms worsen I discussed with the patient the management of her fibromyalgia with current medications, including gabapentin and duloxetine, focusing on adjusting doses as necessary to improve symptom control. I recommended a referral to an talent management specialist to address knee pain and potential physical therapy. A sleep study was suggested to understand the underlying cause of her sleep disturbances further. We discussed eliminating lactose from her diet owing to lactose intolerance. I advised monitoring gastrointestinal bleeding closely and seeking further medical advice if symptoms worsen. The importance of stress management and support through lifestyle modifications was emphasized. Patient was informed and verbally consented to the use of an ambient scribe for clinic note documentation during this visit. Orders: Orders Influenza [id number] Immunization Today Z23 - Encounter for immunization Complete Blood Count Auto Diff Today D64.9 - Anemia, unspecified RT home sleep study Today R40.0 - Somnolence Vitamin D 25-OH Total Today E55.9 - Vitamin D deficiency, unspecified Vitamin B12 and Folate Today E53.8 - Deficiency of other specified B group vitamins Thyroid Stimulating Hormone Today R53.83 - Other fatigue Lipid Panel Today Z00.00 - Encounter for general adult medical examination without abnormal findings Comprehensive [place]. Panel Fast Today Z00.00 - Encounter for general adult medical examination without abnormal findings Referrals Orthopedics Referral M25.561 - Pain in right knee, M25.562 - Pain in left knee Neurology Referral G89.29 - Other chronic pain, R51.9 - Headache, unspecified Gastroenterology Referral K92.1 - Melena Medications: New duloxetine 40 mg PO DAILY 90 days 90 caps 1RF Discontinued duloxetine Discontinued Reason: Patient Completed Course 30 mg PO DAILY 90 days 90 caps 0RF M79.7 - Fibromyalgia Patient Instructions: - Avoid lactose-containing foods - Schedule a sleep study as referred - Monitor gastrointestinal symptoms; seek immediate care if bleeding increases - Consult with an talent management specialist as referred - Continue current fibromyalgia medications and discuss any changes with me - Implement stress relief techniques and supportive lifestyle changes
[2024-03-28 13:46] VITALS: BP 126/80; TEMP 36.2; BMI 25.1
== END 2024-03-28 14:27 | disposition home or self-care (01) ==
PROVIDERS: PCP Internal Medicine; Visit Provider Internal Medicine
DX: Z00.00 Encounter for general adult medical examination without abnormal findings (principal); F41.1 Generalized anxiety disorder; M79.7 Fibromyalgia; F33.1 Major depressive disorder, recurrent, moderate; R40.0 Somnolence; M25.561 Pain in right knee; M25.562 Pain in left knee; R53.83 Other fatigue; K92.1 Melena; R51.9 Headache, unspecified; G89.29 Other chronic pain; Z23 Encounter for immunization

== ENCOUNTER → 2024-03-28 13:41 | Outpatient (BNVA) | payer OTHER, SELFPAY | PROVIDERS: PCP Internal Medicine; Visit Provider Internal Medicine | DX: Z00.00 Encounter for general adult medical examination without abnormal findings (principal); F41.1 Generalized anxiety disorder; M79.7 Fibromyalgia; F33.1 Major depressive disorder, recurrent, moderate; R40.0 Somnolence; M25.561 Pain in right knee; M25.562 Pain in left knee; K92.1 Melena; R51.9 Headache, unspecified; G89.29 Other chronic pain | CPT/HCPCS: 96127; 99212; 99395 ==

== ENCOUNTER 2024-04-04 08:20 | Outpatient (REF) | payer OTHER, SELFPAY ==
[2024-04-04 08:44] LABS: MANUAL DIFF FLAG NO
[2024-04-04 09:08] LABS: Basophils Percent Auto 0.6 % (0-2); Eosinophils Absolute Auto 0.1 X10*3/uL (0.0-0.4); Eosinophils Percent Auto 1.6 % (0-4); Hematocrit 34.8 % (37.0-47.0); Hemoglobin 11.8 g/dl (12.0-16.0); Imm Gran Abs Auto 0.02 X10*3/uL (0.00-0.03); Imm Gran Pct Auto 0.3 % (0.0-0.4); Lymphocytes Absolute Auto 1.8 X10*3/uL (1.2-4.9); Lymphocytes Percent Auto 26.6 % (20-40); Mean Corpuscular HGB Conc 33.9 g/dl (31.0-35.0); Mean Corpuscular Hemoglobin 27.2 pg (27.0-33.0); Mean Corpuscular Volume 80.2 fL (80.0-98.0); Mean Platelet Volume 9.8 fL (9.4-12.3); Monocytes Absolute Auto 0.4 X10*3/uL (0.1-1.2); Monocytes Percent Auto 6.4 % (2-11); Neutrophils Absolute Auto 4.4 x10*3/uL (2.0-8.3); Neutrophils Percent Auto 64.5 % (45-73); Platelet Count 299 X10*3/uL (160-400); Red Blood Count 4.34 X10*6/uL (4.20-5.50); Red Cell Distribution Width 13.1 % (11.0-16.0); White Blood Count 6.8 X10*3/uL (4.8-10.8)
[2024-04-04 09:44] LABS: Alanine Aminotransferase 12 U/L (0-31); Albumin Level 4.2 g/dL (3.5-5.0); Alkaline Phosphatase 58 U/L (39-117); Anion Gap 9 (12-20); Aspartate Amino Transferase 17 U/L (5-31); Bilirubin Total 0.3 mg/dL (0.0-1.0); Blood Urea Nitrogen 13 mg/dL (9-16); Calcium 8.8 mg/dL (8.4-10.2); Carbon Dioxide 22 mmol/L (22-29); Chloride 110 mmol/L (96-108); Cholesterol 224 mg/dL (<200); Estimated Glomerular Filt Rate > 60; Glucose Fasting 76 mg/dL (60-99); HDL Cholesterol 48 mg/dL (>40); LDL Cholesterol Calculated 155 mg/dL (<100); Potassium 3.8 mmol/L (3.3-5.1); Sodium 137 mmol/L (135-145); Total Protein 7.6 g/dL (6.5-8.0); Triglycerides 107 mg/dL (<150)
[2024-04-04 09:51] LABS: Thyroid Stimulating Hormone 1.37 uIU/mL (0.32-4.0); Vitamin D 25-OH Total 54.4 ng/mL (>30)
[2024-04-04 10:03] LABS: Folate 11.2 ng/mL (> or = 4.0); Vitamin B12 299 pg/mL (200-900)
[2024-04-04 10:16] LABS: Influenza A PCR NEGATIVE (Negative); Influenza B PCR NEGATIVE (Negative); Resp Syncy Virus RNA Qual PCR NEGATIVE (Negative); SARS COV2 PCR INHOUSE NEGATIVE (Negative)
== END 2024-04-04 08:21 | disposition home or self-care (01) ==
LOC: HO.LAB 08:20
PROVIDERS: PCP Internal Medicine; Visit Provider Internal Medicine
DX: Z00.00 Encounter for general adult medical examination without abnormal findings (principal); E55.9 Vitamin D deficiency, unspecified; R09.89 Other specified symptoms and signs involving the circulatory and respiratory systems; D64.9 Anemia, unspecified; E53.8 Deficiency of other specified B group vitamins; R53.83 Other fatigue
CPT/HCPCS: 0241U; 80053; 80061; 82306; 82607; 82746; 84443; 85025

== ENCOUNTER 2024-05-16 15:16 | Outpatient (REF) | payer OTHER, SELFPAY | END 2024-05-16 15:17 | disposition home or self-care (01) | LOC: HO.HOSX 15:16 | PROVIDERS: Visit Provider Orthopaedic Surgery | DX: Z13.89 Encounter for screening for other disorder (principal) ==

== ENCOUNTER → 2024-05-24 08:05 | Outpatient (REF) | payer OTHER, SELFPAY | LOC: HO.SL 08:05 | PROVIDERS: PCP Internal Medicine; Visit Provider Internal Medicine | DX: R40.0 Somnolence (principal); R06.83 Snoring | CPT/HCPCS: 95806 ==

== ENCOUNTER → 2024-05-24 08:26 | Outpatient (BNV) | payer OTHER, SELFPAY | PROVIDERS: PCP Internal Medicine; Visit Provider Psychiatry & Neurology Neurology | DX: G47.10 Hypersomnia, unspecified (principal); R06.83 Snoring | CPT/HCPCS: 95806 ==

== ENCOUNTER 2024-05-30 07:47 | Outpatient (AMB) | payer OTHER, SELFPAY ==
[2024-05-30 08:07] VITALS: BP 110/82; PULSE 82; O2SAT 96; BMI 24.1
--- NOTE | 2024-05-30 08:07 | MHC.OFFVIS ---
Vital Signs 05/30/24 08:07 Height 5 ft 2 in Weight 132 lb BMI 24.1 BP 110/82 Blood Pressure Location Rt brachial Position Sitting Pulse 82 Pulse Source Pulse Oximeter Pulse Oximetry (%) 96 Oxygen Delivery Method Room Air Intake Visit Reasons: Follow up Intake Note: Patient presents follow up headache medication. MRI in chart Waste Removalist Required: Yes Waste Removalist Language: Indonesian Accompanied by: Self / Same As Patient Allergies pregabalin Allergy (Intermediate, Verified 05/30/24 08:09) cough tramadol Allergy (Intermediate, Verified 05/30/24 08:09) headache Medication List - Last Reconciled 05/30/24 by EBENEZER Rodriguez carbamazepine ER 1 cap qhs x's 4 days, then 1 cap bid orally 2 times a day; 30 days cefpodoxime mg PO duloxetine 60 mg PO DAILY 30 days magnesium oxide 400 mg PO BEDTIME 90 days meloxicam 7.5 mg PO BID PRN 90 days norgestimate-ethinyl estradiol 0.25-35 mg-mcg (Sprintec (28)) 1 tab PO DAILY omeprazole 20 mg PO DAILY 90 days riboflavin (vitamin B2) 400 mg PO DAILY 90 days sumatriptan succinate 50 - 100 mg orally at onset of headache, may repeat in 2 hrs PRN; max 2 tabs per day or 4 tabs/week (may take with Ibuprofen) 30 days tacrolimus 0.1% topical topiramate 25 - 50 mg (1 - 2 x 25 mg) PO BEDTIME 30 days HPI Comments Details: Right-handed 32-yr-old female presents for follow-up of migraine, however states she would like to discuss a new headache and sleep symptoms. Pt reports her typical migraine attacks were improved since starting B2, Mag, Topiramate 25mg qhs, and prn sumatriptan. Overall tolerating well, but can feel a bit dizzy- off balance at times. Unfortunately, she ran out of all her meds 3 weeks ago, and headaches are again daily to every other day. She has also been feeling tired and generally weak. She recently underwent a HST on 05/24/2024, which was ordered by her PCP. She has also been recently referred to orthopedics to evaluate knee pain. In the last 2 months, she has had a new head pain. It is left sided, left lower face including left mouth and upper lower jaw/teeth, as well as left eye, which moves into the left ear and hoahaoism. The pain throbbing, sharp pain, which comes and goes. The pain comes on slowly and gradually worsens over 10 minutes to 5 hours. She states the attacks are random. She cannot touch the area or sleep on her left side. Aggravating factors: eating, talking, flossing, cold wind. Was told she has bruxism. She saw her dentist, who did x-rays, which per pt were clear. They advised her to see us. Typical migraine headache characteristics: Prodrome symptoms: None Aura: Colored spots and blurry vision Headache characteristics: Moderate to severe pulsating, pressure, stabbing headache in either right or left sided, temporal, right greater than left, retro-orbital, top of the head, back of the head. Rarely in frontal region. Associated symptoms: Bilateral watery eyes, droopy eyelid, Photophobia, phonophobia, allodynia, nausea, not great and space dizziness, brain fog, fatigue, activity intolerance- when severe interferes with daily activities. Postdrome: Unsure Aggravating factors: Heavy lifting can increase headache pressure Lack of sleep, not eating, stress, weather changes Menstrual triggers: In the past, but not currently Time of day: No specific time of day Second headache type characteristics: Severe, Right greater than left unilateral shocking pain, which lasts 1-2 minutes. It occurs 2-3 times per week. 03/26/2023, initial HPI: Right-handed 32-yr-old female presents for new pt evaluation of headache disorder. She has had headaches since childhood, but for many years she has had a constant headache, which does vary throughout the day. Pertinent patient endorsements: Fibromyalgia, neck and back pain. Memory difficulties. Weight gain Constipation Endometriosis, Depression and anxiety, Concussion x2 in early adolescents in late 20s. At age 28, had 1 episode of brief loss of consciousness x's < 5 min, associated with posturing, and postictal fatigue. No interictal tongue biting or incontinence. She was tried on an AED for some time, but is no longer on any. Sleep difficulties including difficulty initiating and maintaining sleep, but denies snoring or apneas or gasping arousals. Pertinent denies include: Denies diplopia. Denies history of clotting disorders, thyroid disease, diabetes, cardiovascular disorders. Headache questionnaire: Preceding causes? Denies any specific precipitating causes Previous work-up? Brain MRI- showed pineal cyst Typical headache characteristics: Prodrome symptoms? None Aura? Colored spots and blurry vision Pain intensity? Moderate to severe Location, quality, characteristics? Pulsating, pressure, stabbing headache in either right or left sided, temporal, right greater than left, retro-orbital, top of the head, back of the head. In rarely frontal region. Associated symptoms? Photophobia, phonophobia, allodynia, nausea, not great and space dizziness, brain fog, fatigue, activity intolerance. Focal weakness, Parethesias, Autonomic s/s? Bilateral watery eyes, droopy eyelid Postdrome? Unsure Triggers? Lack of sleep, not eating, stress, weather changes Any positional, valsalva, exertional, sexual activity triggers? Heavy lifting can increase headache pressure Menstrual triggers? In the past, but not currently Time of day? No specific time of day Duration? Daily Frequency? Daily How does headache impact your life? Interferes with daily activities Second headache type characteristics: Severe, Right greater than left unilateral shocking pain, which lasts 1-2 minutes. It occurs 2-3 times per week. Current acute medication use/interventions: Ibuprofen 400 mg q.h.s. and most days as well. Previous acute medication use: Naproxen caused GI upset. Tramadol caused headache. Current preventative medication use: Duloxetine 30 mg daily- for mood and fibromyalgia. Previous preventative medication use: Pregabalin caused cough. Non-pharmacological interventions: Rest Family planning? None Family history of migraine or other headache disorder: Sister, daughter, uncle [facility] Medical History (Updated 05/30/24 @ 08:59 by EBENEZER Rodriguez) Convulsion CRYSTAL (generalized anxiety disorder) Mild recurrent major depression Family history of diabetes mellitus Polyarthralgia Breast pain, right Fibromyalgia Surgical History History of removal of cyst History of section History of tubal ligation Family History Father Hypertension Mother Heart disease CVD (cardiovascular disease) Diabetes Maternal Grandmother Diabetes Chronic mental illness Maternal Grandfather No problems noted. Paternal Grandmother No problems noted. Paternal Grandfather No problems noted. Social History Housing: Apartment Alcohol intake: never Patient Tobacco Use Status: Never used Tobacco e-Cigarette/Vaping Use: Never Used Second Hand Smoke Exposure: No service: No Current occupational status: unemployed Cognitive needs: No Hearing needs: No Vision needs: Yes (Glasses) Physical Exam Vital Signs: Last Vital Signs Pulse 82 05/30/24 08:07 BP 110/82 05/30/24 08:07 Pulse Ox 96 05/30/24 08:07 Oxygen Delivery Method Room Air 05/30/24 08:07 BMI result Body Mass Index 24.1 Const Orientation/consciousness: patient oriented x3 HEENT Head: Yes normocephalic Resp Effort & Inspection: normal respiratory effort and able to speak in complete sentences Neuro Other: Mild signs of lower teeth wearing, indicating bruxism. Mild tenderness upon palpation of left TMJ/massive region. Bilateral posterior cervical tightness- with left upper trap tightness upon palpation. General: patient oriented x3 Cranial nerves: Yes CN's II-XII intact bilaterally Cognition (Neuro): normal cognition Gait exam (Neuro): Normal gait present Motor exam (neuro): 5/5 motor strength present throughout Pupils: Normal pupillary reactivity/response: bilateral Psych Appearance: grossly normal Mental Status: mental status grossly normal Speech and movement: Normal speech and movement present Affect: normal affect Attitude: cooperative Thought process: Normal thought process present Results Reviewed Results Reviewed: 06/04/2023, brain MRI without contrast- Minimal nonspecific white matter changes Assessment & Plan Assessment & Plan (1) Worsening headaches: Code(s): R51.9 - Headache, unspecified Category: Medical (2) Stabbing headache: Code(s): G44.85 - Primary stabbing headache Category: Medical (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 I considered the potential nerve involvement as indicated by her symptoms resembling trigeminal neuralgia, notably electric shock-like facial pain. I explained that another MRI and MRA of head/brain to assess for secondary etiologies of new onset left-sided headache, particularly focusing on the arteries near the trigeminal nerve is necessary to identify any vascular compression contributing to her symptoms. The patient was educated on trigeminal neuralgia as a possible cause and the benefit of starting treatment with carbamazepine, which is effective in reducing neuralgic pain and has been chosen to be her initial therapy. Potential side effects, including dizziness and fatigue, were discussed, and information was provided on monitoring hydration levels upon starting carbamazepine. Additionally, understanding the impact of trigeminal neuralgia on her quality of life was emphasized, and I advised ongoing communication for effectiveness assessment and further therapeutic adjustment. additionally, patient is advised to resume riboflavin magnesium for typical migraine with aura prevention. However, we will hold topiramate for now, as we are initiating carbamazepine therapy in this may help for migraine prevention as well. She may continue sumatriptan as needed, as it has been ineffective. In regards to sleep, sleep may improve upon treatment of left headache /facial pain symptoms. However review of home sleep study will be done once available. Patient was informed and verbally consented to the use of an ambient scribe for clinic note documentation during this visit. Plan: For overall headache management: Discussed importance of good self-care, including but not limited to maintaining a healthy diet, adequate fluid intake, adequate sleep, and engaging in regular physical activity. For headache triggers: Track headaches, especially after any treatment regimen changes. Migraine [employer] is one of many headache tracking apps. For sleep difficulties: We will review sleep study as ordered by PCP- when report available. For new onset left-sided headache, c/w trigeminal nerve dysfunction: Brain MRI with and without contrast and brain MRA without contrast to assess for secondary etiologies of new onset left-sided headache suggestive of a trigeminal nerve dysfunction. Note that patient did not have this headache type at the time she had previous brain MRI in May of 2023. Start using an OTC mouth guard during sleep. Start carbamazepine 100 mg daily at bedtime times 4 nights then increase to 100 mg twice a day. Advised patient that it she continues on carbamazepine, we will need to monitor labs. PT eval and treat for TMJ pain/bruxism. For acute headache treatment: Continue sumatriptan p.r.n. may adjunct with ibuprofen. Previous acute migraine medication trials: Naproxen caused GI upset Acute migraine medication contraindications: None at this time For headache prevention medication: Resume Riboflavin 400mg qam Resume Magnesium 400mg qhs Hold topiramate 25-50 mg q.h.s.-as patient is starting carbamazepine Continue duloxetine 60 mg q.d. as ordered- for mood and fibromyalgia Previous migraine prevention medication trials: Pregabalin caused cough. Migraine prevention medication contraindications: Would use caution in constipating agents, such as Aimovig or Qulipta. Will follow-up upon review of above and patient to follow-up in clinic in 3-6 months or sooner prn. Orders: Orders MR angio head wo con Today G50.9 - Disorder of trigeminal nerve, unspecified, R51.9 - Headache, unspecified MR head/brain wo/w con Today G50.9 - Disorder of trigeminal nerve, unspecified, R51.9 - Headache, unspecified PT Evaluation and Treatment Today G50.9 - Disorder of trigeminal nerve, unspecified, M26.629 - Arthralgia of temporomandibular joint, unspecified side, R51.9 - Headache, unspecified Medications: New carbamazepine ER 1 cap qhs x's 4 days, then 1 cap bid orally 2 times a day; 30 days 60 caps 1RF riboflavin (vitamin B2) 400 mg PO DAILY 90 days 90 tabs 3RF Changed From magnesium oxide may hold for loose stools 400 mg PO BEDTIME 30 days 30 tabs 6RF To magnesium oxide may hold for loose stools 400 mg PO BEDTIME 90 days 90 tabs 3RF Refilled sumatriptan succinate (0.5 - 1 x 100 mg) 50 - 100 mg orally at onset of headache, may repeat in 2 hrs PRN; max 2 tabs per day or 4 tabs/week (may take with Ibuprofen) 30 days 12 tabs 6RF migraine headache Coding Level of Care Code Est Pt Level 4 (98668) Complex EM visit Add On G2211 Diagnoses Worsening headaches R51.9 Stabbing headache G44.85 Pineal gland cyst E34.8
== END 2024-05-30 09:11 | disposition home or self-care (01) ==
LOC: HO.HSMS 07:48
PROVIDERS: PCP Internal Medicine; Visit Provider Nurse Practitioner Family
DX: G44.85 Primary stabbing headache (principal); E34.8 Other specified endocrine disorders
CPT/HCPCS: 99214; G2211

== ENCOUNTER → 2024-05-30 07:47 | Outpatient (BNVA) | payer OTHER, SELFPAY | PROVIDERS: PCP Internal Medicine; Visit Provider Nurse Practitioner Family | DX: G44.85 Primary stabbing headache (principal); E34.8 Other specified endocrine disorders | CPT/HCPCS: 99212 ==

== ENCOUNTER 2024-06-07 08:58 | Outpatient (REF) | payer OTHER, SELFPAY ==
--- NOTE | ~2024-06-07 | XR_ITS ---
CLINICAL HISTORY: M25.562 - Pain in left knee Left knee three views Comparison: None Findings: No acute fracture or dislocation noted. No significant joint effusion identified. No soft tissue foreign body. Impression: No acute bony abnormality This document has been electronically signed by: Ben Acosta MD on 06/07/2024 19:12:13
--- NOTE | ~2024-06-07 | XR_ITS ---
CLINICAL HISTORY: M25.561 - Pain in right knee Right knee three views Comparison: None Findings: No acute fracture or dislocation noted. No significant joint effusion identified. No soft tissue foreign body. Impression: No acute bony abnormality This document has been electronically signed by: Ben Acosta MD on 06/07/2024 19:14:20
== END 2024-06-07 08:59 | disposition home or self-care (01) ==
LOC: HO.HOSX 08:58
PROVIDERS: Visit Provider Orthopaedic Surgery
DX: M25.561 Pain in right knee (principal); M25.562 Pain in left knee
CPT/HCPCS: 73562; 99202

== ENCOUNTER 2024-06-07 09:43 | Outpatient (AMB) | payer OTHER, SELFPAY ==
--- NOTE | 2024-06-07 09:50 | A.OFFVIS_ITS ---
Vital Signs 06/07/24 09:58 Height 5 ft 2 in Weight 132 lb BMI 24.1 Intake Visit Reasons: Right knee pain and giving way Intake Note: Corie is a 33 year old female who presents with complaints of progressively worsening right knee pain and giving way. The patient also has intermittent left knee pain. The patient states that her right knee symptoms have gotten worse over the last year in spite of continued non operative treatments. She states that her right knee will give out several times per day. The patient states that several days ago she almost fell to the ground because of the instability. She has tried Tylenol, anti-inflammatory medicines and muscle relaxants which gave her minimal relief. She has also done physical therapy exercises which aggravated her pain. The patient also reports intermittent low back pain. She has not been seen by a back specialist. [employer] Project Manager Services: [employer] Project Manager Present (Kailyn ([id number])) Allergies pregabalin Allergy (Intermediate, Verified 05/30/24 08:09) cough tramadol Allergy (Intermediate, Verified 05/30/24 08:09) headache Medication List - Last Reconciled 06/07/24 by Ulises Morris MD carbamazepine ER 1 cap qhs x's 4 days, then 1 cap bid orally 2 times a day; 30 days cefpodoxime mg PO duloxetine 60 mg PO DAILY 30 days magnesium oxide 400 mg PO BEDTIME 90 days meloxicam 7.5 mg PO BID PRN 90 days norgestimate-ethinyl estradiol 0.25-35 mg-mcg (Sprintec (28)) 1 tab PO DAILY omeprazole 20 mg PO DAILY 90 days riboflavin (vitamin B2) 400 mg PO DAILY 90 days sumatriptan succinate 50 - 100 mg orally at onset of headache, may repeat in 2 hrs PRN; max 2 tabs per day or 4 tabs/week (may take with Ibuprofen) 30 days tacrolimus 0.1% topical topiramate 25 - 50 mg (1 - 2 x 25 mg) PO BEDTIME 30 days [facility] Medical History (Updated 06/07/24 @ 10:15 by Ulises Morris MD) Convulsion CRYSTAL (generalized anxiety disorder) Mild recurrent major depression Family history of diabetes mellitus Polyarthralgia Breast pain, right Fibromyalgia Surgical History History of removal of cyst History of section History of tubal ligation Family History Father Hypertension Mother Heart disease CVD (cardiovascular disease) Diabetes Maternal Grandmother Diabetes Chronic mental illness Maternal Grandfather No problems noted. Paternal Grandmother No problems noted. Paternal Grandfather No problems noted. Social History Housing: Apartment Alcohol intake: never Patient Tobacco Use Status: Never used Tobacco e-Cigarette/Vaping Use: Never Used Second Hand Smoke Exposure: No service: No Current occupational status: unemployed Cognitive needs: No Hearing needs: No Vision needs: Yes (Glasses) Physical Exam Vital Signs: BMI result Body Mass Index 24.1 Const Other: Well-nourished well-developed very friendly female awake alert and oriented x3 in no acute distress Extrem Other: Bilateral lower extremity examination shows good capillary refill, no skin lesions noted, normal sensation light touch Right knee examination shows a minimal effusion, minimal crepitus with range of motion, tenderness along her medial joint line, positive Shon's test, no instability Results Reviewed Results Reviewed: X-rays of the patient's bilateral knee show mild diffuse joint space narrowing, no acute bony abnormalities Assessment & Plan Assessment & Plan (1) Low back pain: Code(s): M54.50 - Low back pain, unspecified Category: Medical (2) Tear of medial meniscus of right knee: Code(s): S83.241A - Other tear of medial meniscus, current injury, right knee, initial encounter Category: Medical Plan Ms. Kenton Dennis presents with right knee pain and mechanical symptoms most likely due to a medial meniscus tear. Thus, I will send the patient for an MRI of her right knee for further evaluation. I will see her back once the MRI is completed to discuss the findings and treatment options. She also has progressively worsening low back pain. Thus, I will arrange for her to have an evaluation in our pain management clinic. Feel free to call me at any time should questions regarding her orthopedic management arise. Thank you very much for asking me to see this very friendly patient. I spent 20 minutes in reviewing the patient's records and imaging studies, seeing the patient and documenting in the medical record. Orders: Orders MR knee RT wo con Today S83.241A - Other tear of medial meniscus, current injury, right knee, initial encounter XR knee LT 3V Today M25.562 - Pain in left knee XR knee RT 3V Today M25.561 - Pain in right knee Referrals Pain Management Referral M54.50 - Low back pain, unspecified Coding Level of Care Code New Pt Level 3 (14584) Complex EM visit Add On G2211 Diagnoses Low back pain M54.50 Tear of medial meniscus of right knee S83.241A
[2024-06-07 09:58] VITALS: BMI 24.1
== END 2024-06-07 10:14 | disposition home or self-care (01) ==
LOC: HO.HOS 09:43
PROVIDERS: PCP Internal Medicine; Visit Provider Orthopaedic Surgery
DX: M54.50 Low back pain, unspecified (principal); S83.241A Other tear of medial meniscus, current injury, right knee, initial encounter
CPT/HCPCS: 99203; G2211

== ENCOUNTER → 2024-06-07 09:45 | Outpatient (BNV) | payer OTHER, SELFPAY | PROVIDERS: Visit Provider Radiology Diagnostic Radiology | DX: M25.561 Pain in right knee (principal); M25.562 Pain in left knee | CPT/HCPCS: 73562 ==

== ENCOUNTER → 2024-06-08 08:02 | Outpatient (BNV) | payer OTHER, SELFPAY | PROVIDERS: PCP Internal Medicine; Visit Provider Radiology Diagnostic Radiology | DX: G50.9 Disorder of trigeminal nerve, unspecified (principal); I63.522 Cerebral infarction due to unspecified occlusion or stenosis of left anterior cerebral artery | CPT/HCPCS: 70544; 70553 ==

== ENCOUNTER 2024-06-08 08:05 | Outpatient (REF) | payer OTHER, SELFPAY ==
--- NOTE | ~2024-06-08 | MR_ITS ---
EXAMINATION: MR ANGIOGRAPHY BRAIN WITHOUT CONTRAST CLINICAL INFORMATION: Disorders of the trigeminal nerve, unspecified. COMPARISON: None available. TECHNIQUE: 3-D [id number]. Maximum intensity projections [place] of [place]. Total of 6 cc gadolinium based given. Patient vomited after contrast administration. FINDINGS: Anterior cerebral circulation: ICAs: Petrous cavernous supraclinoid segments demonstrated no focal stenosis or abrupt cut off. MCA's: No focal stenosis or abrupt cut off. No contour irregularity. Bifurcation/trifurcation demonstrated normal vascular irregularity. ACAs: No focal stenosis or abrupt cut off. Anterior communicating artery is present. Ophthalmic arteries are patent without vascular irregularity at the origin. The posterior communicating arteries demonstrated patency with small caliber. Posterior cerebral circulation: V3/V4 segments: Normal patency. No focal stenosis or intimal flap. Codominant. Basilar artery: Normal patency. No focal stenosis or intimal flap. Superior cerebellar arteries are patent. commercial finance manager: Normal patency. No focal stenosis or abrupt cut off. The right posterior inferior cerebral artery crosses midline. The left posterior inferior cerebellar artery has a common trunk with the left anterior inferior cerebellar artery.. The left anterior inferior cerebral artery is type II/III MR/MR angio head wo con IMPRESSION: No main cerebral artery occlusion or embolus or gross aneurysm. Left AICA, type II-III There is a complete [place] of [place]. Electronically signed by: Wilfred Boss MD 06/08/2024 02:45 PM EDT
--- NOTE | ~2024-06-08 | MR_ITS ---
EXAMINATION: MR BRAIN WITHOUT AND WITH CONTRAST CLINICAL INFORMATION: Disorder of the trigeminal nerves, unspecified. COMPARISON: June 04, 2023. TECHNIQUE: Multiplanar, multisequence MRI of the brain was obtained before and after the intravenous administration of 6 mL Gadavist. Patient vomited after the intravenous injection. FINDINGS: The Meckel's cave demonstrated no signal abnormality or enhancing lesion. The cisternal segments and entry zones of the trigeminal nerves demonstrated no signal abnormality or enhancing lesion. No enhancing lesion within the brainstem. The right anterior inferior cerebellar artery is type I. The left anterior inferior cerebellar artery is patent III. No enhancing mass in the cerebellopontine angle cisterns or the perimesencephalic cisterns. The flow-void signal within the main vessels is normal. No signal abnormality or enhancing mass in the cavernous sinuses. No enhancing lesion within the orbital fissure nor the foraminal ovale or foramen rotundum. No signal abnormality or enhancing lesion within the labyrinthine, geniculate tympanic and mastoid segments of the facial nerves at either side. 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 No acute intracranial hemorrhage, mass effect, midline shift, hydrocephalus or herniation. No restricted diffusion. Isaac-white matter differentiation is normal. Sellar/suprasellar region demonstrated no signal abnormality or enhancing mass. Craniocervical junction is normal. Midline structures are normal. MR/MR head/brain wo/w con IMPRESSION: No enhancing lesion or signal abnormality in the trigeminal cranial nerves. No acute brain abnormality or abnormal enhancement. Negative exam. Electronically signed by: Wilfred Boss MD 06/08/2024 03:16 PM EDT
[2024-06-08] MEDS: gadobutroL 7.5 ML VIAL IVPUSH (10:29)
== END 2024-06-08 08:06 | disposition home or self-care (01) ==
LOC: HO.MRI 08:05
PROVIDERS: PCP Internal Medicine; Visit Provider Nurse Practitioner Family
DX: G50.9 Disorder of trigeminal nerve, unspecified (principal); R51.9 Headache, unspecified
CPT/HCPCS: 70544; 70553; A9585

== ENCOUNTER 2024-06-15 11:03 | Outpatient (REF) | payer OTHER, SELFPAY ==
--- NOTE | ~2024-06-15 | MR_ITS ---
CLINICAL HISTORY: S83.241A - Other tear of medial meniscus, current injury, right knee, in... Exam: MRI of the right knee without intravenous contrast. Comparison: Radiographs June 07, 2024. Findings: The anterior and posterior cruciate ligaments are intact. No meniscal tears. Quadriceps tendon and patellar tendon are intact. Mild edema within the quadriceps fat pad. Medial collateral ligament and lateral collateral complex are intact. No discrete cartilage defects. Joint spaces are well preserved. A physiologic amount of fluid within the knee joint. There is edema within the superolateral aspect of Hoffa's fat pad. Impression: 1. No cruciate ligament, collateral ligament, or meniscal tear. 2. Edema within the quadriceps fat pad as well as edema within the superolateral aspect of Hoffa's fat pad. This suggests Hoffa's fat pad impingement as the etiology of the patient's knee pain. This document has been electronically signed by: Jose Chow MD on 06/16/2024 09:49:55
== END 2024-06-15 11:04 | disposition home or self-care (01) ==
LOC: HO.MRI 11:03
PROVIDERS: Visit Provider Orthopaedic Surgery
DX: S83.241A Other tear of medial meniscus, current injury, right knee, initial encounter (principal)
CPT/HCPCS: 73721

== ENCOUNTER → 2024-06-15 11:08 | Outpatient (BNV) | payer OTHER, SELFPAY | PROVIDERS: Visit Provider Radiology Diagnostic Radiology | DX: S83.241A Other tear of medial meniscus, current injury, right knee, initial encounter (principal) | CPT/HCPCS: 73721 ==

== ENCOUNTER 2024-07-06 08:22 | Outpatient (AMB) | payer OTHER, SELFPAY ==
--- NOTE | 2024-07-06 08:37 | MHC.OFFVIS ---
Vital Signs 07/06/24 08:40 Height 5 ft 2 in Weight 133 lb BMI 24.3 BP 129/69 Blood Pressure Location Lt brachial Position Sitting Pulse 67 Pulse Source Pulse Oximeter Pulse Oximetry (%) 100 Oxygen Delivery Method Room Air Intake Visit Reasons: Low back pain, unspecified Intake Note: Pain today 7/10 Nurse Midwife/Clinical Instructor Required: Yes Nurse Midwife/Clinical Instructor Language: Casino Banker Name: Eleanor Accompanied by: Self / Same As Patient Allergies pregabalin Allergy (Intermediate, Verified 07/06/24 08:42) cough tramadol Allergy (Intermediate, Verified 07/06/24 08:42) headache HPI Comments Details: Corie is very pleasant 33 years old female who presents in my office with complains on pain in the base of the neck pain in the upper back pain in the lower back as well as pain in bilateral knees pain in bilateral shoulders. She was diagnosed by skin care instructor with fibromyalgia. She is also under observation with neurologist with diagnosis of trigeminal neuralgia and migraine headaches. She reports today her pain level 6 to 7/10. She reports that pain started 2-3 years ago. Has not know the reason pain started. She reports unable to sleep normally because of her pain she is able to do activities of daily living with difficulty, she can not take care of herself but she can not function normally. 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 Weather changes in movements aggravate her pain. Oral medications make her pain better. In terms of tissue damage he reports her pain as jumping, flushing, shooting, stabbing, sharp, cramping, crushing, hot burning, scalding, tingling, stinging, hurting, aching, heavy sensation. She had multiple studies performed on her brain in [facility], she had x-ray of the thoracic spine. The dictation of the x-ray of the thoracic spine see as below. She had physical therapy in the past for her hip condition however never had physical therapy for her back pain. She never had any injections short of epidural injections with catheter for acute labor pain. Her past medical history significant for migraine headaches 1 episode of epilepsy history of fatigue history of dizziness history of depression asthma frequent UTIs and endometriosis. She had 1 section, tubal ligation after the . She denies smoking cigarettes denies drinking alcohol denies coffee or caffeinated beverages denies recreational drugs. [facility] Medical History (Updated 07/06/24 @ 09:19 by Nasim Alejo MD) Convulsion CRYSTAL (generalized anxiety disorder) Mild recurrent major depression Family history of diabetes mellitus Polyarthralgia Breast pain, right Fibromyalgia Surgical History History of removal of cyst History of section History of tubal ligation Family History Father Hypertension Mother Heart disease CVD (cardiovascular disease) Diabetes Maternal Grandmother Diabetes Chronic mental illness Maternal Grandfather No problems noted. Paternal Grandmother No problems noted. Paternal Grandfather No problems noted. Social History Housing: Apartment Alcohol intake: never Patient Tobacco Use Status: Never used Tobacco e-Cigarette/Vaping Use: Never Used Second Hand Smoke Exposure: No service: No Current occupational status: unemployed Cognitive needs: No Hearing needs: No Vision needs: Yes (Glasses) Review of Systems Const Reports fatigue ENT Reports Normal hearing present Card Reports no additional complaints Resp Reports no additional complaints GI Reports no additional complaints Musc Reports as per HPI Neuro Reports no additional complaints, Reports Normal hearing present, Denies Abnormal speech present, Denies confusion and Denies Sensory deficit (Neuro) Psych Reports no additional complaints and Denies confusion Endo Reports fatigue Physical Exam Vital Signs: Last Vital Signs Pulse 67 07/06/24 08:40 BP 129/69 07/06/24 08:40 Pulse Ox 100 07/06/24 08:40 Oxygen Delivery Method Room Air 07/06/24 08:40 BMI result Body Mass Index 24.3 Const General: no acute distress; No confusion Orientation/consciousness: patient oriented x3 and No confusion Eyes General: appearance normal, both eyes and all related structures Pupils: Equal, round and reactive pupils present EOM: EOMs intact bilaterally Neck Neck: Yes full ROM Chest Chest palpation & inspection: normal inspection of the chest Resp Effort & Inspection: normal respiratory effort, able to speak in complete sentences, normal respiratory pattern, no audible wheezes and no cough Cardio Jugular venous distension: no JVD GI Inspection: Yes normal to inspection Back/Spine/Pelvis Other: There is tenderness on palpation in paraspinal spinal region entire spine. Flexing forward aggravates pain more than flexing backwards. There is positive Vinny test on the right and negative on the left. SLR is negative bilaterally. Neuro General: patient oriented x3, gait normal and No confusion Cranial nerves: Yes CN's II-XII intact bilaterally, Yes Equal, round and reactive pupils present, Yes Normal hearing present and Yes Ability to bilaterally elevate shoulders present Speech: No Abnormal speech present Gait exam (Neuro): Normal gait present Motor exam (neuro): 5/5 motor strength present throughout Sensory Exam: No Sensory deficit (Neuro) Extrem General: No pedal edema Psych Speech and movement: Normal speech and movement present Affect: normal affect Attitude: cooperative Thought process: Normal thought process present Thought content: Normal thought content present Insight: Good insight present (Psych) Judgement: Good judgement present (Psych) Results Reviewed Results Reviewed: X-ray Thoracic spine: Trace thoracolumbar scoliosis, otherwise alignment is normal. Vertebral bodies and intervertebral discs are maintained in height. Pedicles and visualized ribs are intact. No focal paravertebral soft tissue swelling seen. Subcentimeter calcification left base may be granuloma. Bilateral elbows: Alignment and articulations are normal. No fracture or dislocation bilaterally. No joint effusions. Bilateral knees: No fracture, dislocation or joint effusion bilaterally. No significant joint space narrowings. Alignment and articulations are maintained. Assessment & Plan Assessment & Plan (1) Fibromyalgia: Code(s): M79.7 - Fibromyalgia Category: Medical (2) Spondylosis, thoracic: Code(s): M47.814 - Spondylosis without myelopathy or radiculopathy, thoracic region Category: Medical (3) Intractable back pain: Code(s): M54.9 - Dorsalgia, unspecified Category: Medical Plan This patient is most likely suffering from fibromyalgia and related spondylosis of the lumbar spine. I will send her for physical therapy to treat this condition. I will schedule appointment with her in 8 weeks after she will complete physical therapy. I explained to her that physical therapy is effective only if she is engaged in home exercise programs and continues to do exercises at home she learned at physical therapy office. Orders: Orders PT Evaluation and Treatment Today M47.814 - Spondylosis without myelopathy or radiculopathy, thoracic region, M54.9 - Dorsalgia, unspecified, M79.7 - Fibromyalgia Patient Instructions: I here by testify that I spent 45 minutes in conversation with this patient as well as evaluating her prior diagnostic studies and prior records as well as planning her care and organizing this note. One of the office workers who is fluent in Angolan and Albanian was helping us to maintain this conversation in Angolan. The voice system was not working today. Coding Level of Care Code New Pt Level 4 (31031) Diagnoses Fibromyalgia M79.7 Spondylosis, thoracic M47.814 Intractable back pain M54.9
[2024-07-06 08:40] VITALS: BP 129/69; PULSE 67; O2SAT 100; BMI 24.3
== END 2024-07-06 09:10 | disposition home or self-care (01) ==
LOC: HO.PMC 08:23
PROVIDERS: PCP Internal Medicine; Referring Provider Orthopaedic Surgery; Visit Provider Anesthesiology
DX: M79.7 Fibromyalgia (principal); M47.814 Spondylosis without myelopathy or radiculopathy, thoracic region; M54.9 Dorsalgia, unspecified
CPT/HCPCS: 99204

== ENCOUNTER → 2024-07-06 08:22 | Outpatient (BNVA) | payer OTHER, SELFPAY | PROVIDERS: PCP Internal Medicine; Referring Provider Orthopaedic Surgery; Visit Provider Anesthesiology | DX: M79.7 Fibromyalgia (principal); M47.814 Spondylosis without myelopathy or radiculopathy, thoracic region | CPT/HCPCS: 99202 ==

== ENCOUNTER 2024-07-13 10:22 | Outpatient (AMB) | payer OTHER, SELFPAY ==
--- NOTE | 2024-07-13 10:26 | A.OFFVIS_ITS ---
Vital Signs 07/13/24 10:35 Height 5 ft 2 in Weight 133 lb BMI 24.3 Intake Visit Reasons: Left knee pain and giving way Intake Note: Corie is a 33 year old female who presents with complaints of progressively worsening left knee pain and giving way. The patient also has intermittent right knee pain. The patient states that her left knee symptoms have gotten worse over the last year in spite of continued non operative treatments. She states that her left knee will give out several times per day. The patient states that several days ago she almost fell to the ground because of the instability. She has tried Tylenol, anti-inflammatory medicines and muscle relaxants which gave her minimal relief. Ice Cream Freezer Assistant Required: Yes Ice Cream Freezer Assistant Language: Stone [employer] Services: Ice Cream Freezer Assistant Present Ice Cream Freezer Assistant Name: CamilleMARELY/MARILU Allergies pregabalin Allergy (Intermediate, Verified 07/13/24 10:27) cough tramadol Allergy (Intermediate, Verified 07/13/24 10:27) headache Medication List - Last Reconciled 07/13/24 by Ulises Morris MD carbamazepine ER 1 cap qhs x's 4 days, then 1 cap bid orally 2 times a day; 30 days cefpodoxime mg PO duloxetine 60 mg PO DAILY 30 days magnesium oxide 400 mg PO BEDTIME 90 days meloxicam 7.5 mg PO BID PRN 90 days norgestimate-ethinyl estradiol 0.25-0.035 mg (Sprintec (28)) 1 tab PO DAILY omeprazole 20 mg PO DAILY 90 days riboflavin (vitamin B2) 400 mg PO DAILY 90 days sumatriptan succinate 50 - 100 mg orally at onset of headache, may repeat in 2 hrs PRN; max 2 tabs per day or 4 tabs/week (may take with Ibuprofen) 30 days tacrolimus 0.1% topical topiramate 25 - 50 mg (1 - 2 x 25 mg) PO BEDTIME 30 days [facility] Medical History (Updated 07/13/24 @ 10:37 by Ulises Morris MD) Convulsion CRYSTAL (generalized anxiety disorder) Mild recurrent major depression Family history of diabetes mellitus Polyarthralgia Breast pain, right Fibromyalgia Surgical History History of removal of cyst History of section History of tubal ligation Family History Father Hypertension Mother Heart disease CVD (cardiovascular disease) Diabetes Maternal Grandmother Diabetes Chronic mental illness Maternal Grandfather No problems noted. Paternal Grandmother No problems noted. Paternal Grandfather No problems noted. Social History Housing: Apartment Alcohol intake: never Patient Tobacco Use Status: Never used Tobacco e-Cigarette/Vaping Use: Never Used Second Hand Smoke Exposure: No service: No Current occupational status: unemployed Cognitive needs: No Hearing needs: No Vision needs: Yes (Glasses) Physical Exam Vital Signs: BMI result Body Mass Index 24.3 Const Other: Well-nourished well-developed very friendly female awake alert and oriented x3 in no acute distress Extrem Other: Right knee examination shows a minimal effusion, minimal crepitus with range of motion, negative Shon's test Left knee examination shows a mild effusion, minimal crepitus with range of motion, tenderness along her medial joint line, positive Shon's test, no instability Results Reviewed Results Reviewed: MRI of the patient's right knee shows minimal degenerative changes, no evidence of meniscus or ligamentous injury Standing full weight-bearing x-rays of the patient's left knee taken previously show minimal joint space narrowing, no acute bony abnormalities Assessment & Plan Assessment & Plan (1) Tear of medial meniscus of left knee: Code(s): S83.242A - Other tear of medial meniscus, current injury, left knee, initial encounter Category: Medical Plan Ms. Kenton Dennis presents with left knee pain and mechanical symptoms most likely due to a medial meniscus tear. Thus, I will send the patient for an MRI of her left knee for further evaluation. I will see her back once the MRI is completed to discuss the findings and treatment options. Feel free to call me at any time should questions regarding her orthopedic management arise. I spent 22 minutes in reviewing the patient's records and imaging studies, seeing the patient and documenting in the medical record. Orders: Orders MR knee LT wo con Today S83.242A - Other tear of medial meniscus, current injur y, left knee, initial encounter Coding Level of Care Code Est Pt Level 3 (91684) Complex EM visit Add On G2211 Diagnoses Tear of medial meniscus of left knee S83.242A
[2024-07-13 10:35] VITALS: BMI 24.3
== END 2024-07-13 10:34 | disposition home or self-care (01) ==
LOC: HO.HOS 10:23
PROVIDERS: Visit Provider Orthopaedic Surgery
DX: S83.242A Other tear of medial meniscus, current injury, left knee, initial encounter (principal)
CPT/HCPCS: 99213; G2211

== ENCOUNTER → 2024-07-13 10:22 | Outpatient (BNVA) | payer OTHER, SELFPAY | PROVIDERS: Visit Provider Orthopaedic Surgery | DX: S83.242D Other tear of medial meniscus, current injury, left knee, subsequent encounter (principal) | CPT/HCPCS: 99212 ==

== ENCOUNTER 2024-07-19 14:37 | Outpatient (AMB) | payer OTHER, SELFPAY ==
--- NOTE | 2024-07-19 14:41 | A.OFFPC_ITS ---
Vital Signs 07/19/24 14:44 Height 5 ft 2 in Weight 132 lb BMI 24.1 BP 108/70 Blood Pressure Location Lt brachial Position Sitting Intake Visit Reasons: pain L side face Lead Software Test Engineer Required: No Accompanied by: Self / Same As Patient Allergies pregabalin Allergy (Intermediate, Verified 07/19/24 14:51) cough tramadol Allergy (Intermediate, Verified 07/19/24 14:51) headache Medication List - Last Reconciled 07/19/24 by Nicci Agudelo MD carbamazepine ER 1 cap qhs x's 4 days, then 1 cap bid orally 2 times a day; 30 days cefpodoxime mg PO duloxetine 60 mg PO DAILY 30 days magnesium oxide 400 mg PO BEDTIME 90 days meloxicam 7.5 mg PO BID PRN 90 days norgestimate-ethinyl estradiol 0.25-0.035 mg (Sprintec (28)) 1 tab PO DAILY omeprazole 20 mg PO DAILY 90 days riboflavin (vitamin B2) 400 mg PO DAILY 90 days sumatriptan succinate 50 - 100 mg orally at onset of headache, may repeat in 2 hrs PRN; max 2 tabs per day or 4 tabs/week (may take with Ibuprofen) 30 days tacrolimus 0.1% topical topiramate 25 - 50 mg (1 - 2 x 25 mg) PO BEDTIME 30 days Tobacco use date assessed: 03/28/24 Dental Screening Dental Screen Date: 03/28/24 HPI HPI Comments History of Present Illness Details The patient is a 33-year-old female presenting with migraine. Her migraines are characterized by severe, stabbing headaches accompanied by nausea and are debilitating to the point of requiring her to lie down to prevent syncope. The patient recalls significant improvement since starting medication, with the frequency and intensity of migraines decreasing. She also reports trigeminal neuralgia pain episodes, which align with the trigeminal nerve distribution, causing substantial discomfort. She experiences TMJ symptoms, including pain when swallowing and chewing, suggesting possible temporal mandibular joint involvement. The patient?s anxiety and depression contribute to her forgetfulness, requiring management through psychological support. Knee pain related to Hoffa's fat pad edema in the right knee is verified by MRI, showing swelling and edema, but without any meniscal or ligament damage. Both knees show similar sensations, but pain is more pronounced in the right knee. Additionally, she has constipation issues, managed intermittently with polyethylene glycol, though she seeks further treatment to resolve ongoing symptoms. [facility] Medical History (Updated 07/19/24 @ 16:00 by Nicci Agudelo MD) Moderate recurrent major depression Mild recurrent major depression Convulsion CRYSTAL (generalized anxiety disorder) Family history of diabetes mellitus Polyarthralgia Breast pain, right Fibromyalgia Surgical History History of removal of cyst History of section History of tubal ligation Family History Father Hypertension Mother Heart disease CVD (cardiovascular disease) Diabetes Maternal Grandmother Diabetes Chronic mental illness Maternal Grandfather No problems noted. Paternal Grandmother No problems noted. Paternal Grandfather No problems noted. Social History Housing: Apartment Alcohol intake: never Patient Tobacco Use Status: Never used Tobacco e-Cigarette/Vaping Use: Never Used Second Hand Smoke Exposure: No service: No Current occupational status: unemployed Cognitive needs: No Hearing needs: No Vision needs: Yes (Glasses) Questionnaire Thrive Questionnaire Date Thrive assessed: 03/28/24 I am a: Patient What is your living situation today?: I have a steady place to live Within the past 12 months, did the food you bought not last and you didn't have the money to get more?: Sometimes True Within the past 12 months, did you worry whether your food would run out before you got money to buy more?: Sometimes True Do you have trouble paying for medicines?: No Do you have trouble getting transportation to medical appointments?: No Do you have trouble paying your heating and electricity bill?: I choose not to answer this question Do you have trouble taking care of your child, family member or friend?: No Do you have trouble with day-to-day activities such as bathing, preparing meals, shopping, managing finances, etc.?: I choose not to answer this question Are you currently unemployed and looking for a job?: Yes Are you interested in more education?: I choose not to answer this question Currently or been in a relationship where the following occur: No concerns reported THRIVE Score: 2 AUDIT C Alcohol Use Questionnaire (AUDIT-C) 3. How often do you have six or more drinks on one occasion?: Never Total Score: 0 CRYSTAL-7 AMB Questionnaire CRYSTAL-7 Date CRYSTAL - 7 assessed: 03/28/24 Source: Developed by Drs. David Gil, Regine Torre, Job Polo and colleagues, with an educational adriana from [employer]. Review of Systems Const All systems reviewed & are unremarkable except as noted in HPI and below Card Denies chest pain at rest, Denies chest pain with activity, Denies edema, Denies irregular heart rhythm, Denies claudication, Denies dyspnea, Denies dyspnea on exertion, Denies orthopnea, Denies paroxysmal nocturnal dyspnea and Denies slow heart rate Resp Denies cough, Denies dyspnea and Denies dyspnea on exertion GI Denies abdominal pain, Denies change in bowel habits, Denies excessive flatus, Denies nausea and Denies vomiting Physical exam (Primary Care) Vital Signs: Last Vital Signs BP 108/70 07/19/24 14:44 BMI result Body Mass Index 24.1 Tobacco/Smoking Status: Tobacco use Status Tobacco use date assessed 03/28/24 07/19/24 14:46 Patient Tobacco Use Status Never used Tobacco 07/19/24 14:46 e-Cigarette/Vaping Use Never Used 07/19/24 14:46 Thrive Assessment: Date of Thrive Assessment Date Thrive assessed 03/28/24 07/19/24 14:46 Currently or been in a relationship where the following occur: No concerns reported Resp Effort & Inspection: normal respiratory effort Auscultation: clear to auscultation bilaterally Cardio Jugular venous distension: no JVD Rate: regular rate Rhythm: regular rhythm Heart sounds: S1 normal heart sound present and S2 normal heart sound present Extrem General: Yes full ROM Coding Level of Care Code Est Pt Level 4 (59560) Complex EM visit Add On G2211 Diagnoses Hair loss L65.9 Mild recurrent major depression F33.0 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 Fatigue R53.83 Bilateral knee pain M25.561; M25.562 Chronic idiopathic constipation K59.04 Migraines G43.909 Time Spent (min) 23 Assessment & Plan Assessment & Plan (1) Hair loss: Code(s): L65.9 - Nonscarring hair loss, unspecified Category: Medical (2) Mild recurrent major depression: Code(s): F33.0 - Major depressive disorder, recurrent, mild Category: Medical (3) Disorder of left trigeminal nerve: Code(s): G50.9 - Disorder of trigeminal nerve, unspecified Category: Medical (4) Fatigue: Code(s): R53.83 - Other fatigue Category: Medical (5) Bilateral knee pain: Code(s): M25.561 - Pain in right knee; M25.562 - Pain in left knee Category: Medical (6) Chronic idiopathic constipation: Code(s): K59.04 - Chronic idiopathic constipation Category: Medical (7) Migraines: Code(s): G43.909 - Migraine, unspecified, not intractable, without status migrainosus Category: Medical Plan Therapeutic options for migraine involve maintaining current Topiramate regimen, with the potential for increased dosage based on symptom persistence. For trigeminal neuralgia, careful medication evaluation continues; referral to specialized care could be warranted. Anxiety and depression are being addressed with psychological support via scheduled phone sessions. Right knee pain management will explore symptomatic relief through conservative measures, with potential consideration of injection therapy. Constipation will be treated with polyethylene glycol, adjusted as needed. Patient was informed and verbally consented to the use of an ambient scribe for clinic note documentation during this visit. I discussed with the patient the management of her migraine, including the adjustment of Topiramate dosage due to sleep concerns and its impact on migraines and depression. We reviewed the potential interactions of her medications involving Carbamazepine and Topiramate, with careful monitoring. Options for nerve pain related to trigeminal neuralgia were discussed, including thorough evaluation by a neurologist if necessary. I explained the knee findings from her MRI and gauged potential future interventions if conservative management ceases to be effective. Furthermore, a referral to dermatology addresses her concerns about hair loss, an issue she keenly noted during the visit. The patient also expressed willingness to see a psychologist for her anxiety and depression, noting that pragmatic arrangements for therapy be prioritized. Orders: Orders UA CC w/rflx Micro + Cult Today R30.0 - Dysuria Referrals Counseling Referral F33.0 - Major depressive disorder, recurrent, mild Dermatology Referral L65.9 - Nonscarring hair loss, unspecified Medications: New amitriptyline 10 mg PO BEDTIME 90 tabs 1RF 90 days docusate sodium (Colace) 100 mg PO BID PRN 60 caps 0RF constipation 30 days Patient Instructions: - Continue taking Topamax as prescribed. - Increase to 50mg Topamax if sleep issues persist. - Take polyethylene glycol for constipation as needed. - Attend scheduled phone therapy with a psychologist. - Follow up with a farm rancher for hair loss concerns. - Review interactions of Carbamazepine with current medications. - Keep track of symptoms; report any worsening. - Return for follow-up to evaluate treatment efficacy.
[2024-07-19 14:44] VITALS: BP 108/70; BMI 24.1
== END 2024-07-19 15:10 | disposition home or self-care (01) ==
LOC: HO.HMCH 14:37
PROVIDERS: PCP Internal Medicine; Visit Provider Internal Medicine
DX: L65.9 Nonscarring hair loss, unspecified (principal); F33.0 Major depressive disorder, recurrent, mild; G50.9 Disorder of trigeminal nerve, unspecified; R53.83 Other fatigue; M25.561 Pain in right knee; M25.562 Pain in left knee; K59.04 Chronic idiopathic constipation; G43.909 Migraine, unspecified, not intractable, without status migrainosus

== ENCOUNTER → 2024-07-19 14:37 | Outpatient (BNVA) | payer OTHER, SELFPAY | PROVIDERS: PCP Internal Medicine; Visit Provider Internal Medicine | DX: G43.909 Migraine, unspecified, not intractable, without status migrainosus (principal); G50.0 Trigeminal neuralgia; M26.629 Arthralgia of temporomandibular joint, unspecified side; R60.9 Edema, unspecified; L65.9 Nonscarring hair loss, unspecified; F33.0 Major depressive disorder, recurrent, mild; M25.561 Pain in right knee; M25.562 Pain in left knee; K59.04 Chronic idiopathic constipation; Z79.899 Other long term (current) drug therapy; R30.0 Dysuria | CPT/HCPCS: 99212 ==

== ENCOUNTER → 2024-08-07 09:30 | Outpatient (BNV) | payer OTHER, SELFPAY | PROVIDERS: PCP Internal Medicine; Visit Provider Radiology Diagnostic Radiology | DX: M22.2X2 Patellofemoral disorders, left knee (principal); M79.4 Hypertrophy of (infrapatellar) fat pad; M96.2 Postradiation kyphosis | CPT/HCPCS: 73721 ==

== ENCOUNTER 2024-08-07 09:32 | Outpatient (REF) | payer OTHER, SELFPAY ==
--- NOTE | ~2024-08-07 | MR_ITS ---
EXAM: MRI lower extremity joint without contrast TECHNIQUE: Multiplanar multisequence imaging performed through the left knee without contrast. INDICATION: Acute injury PRIOR: None FINDINGS: Menisci: The lateral meniscus is intact. There is minimal amorphous intermediate signal consistent with mild myxoid degeneration. On the coronal projection, there is curvilinear fluid signal at the meniscocapsular junction concerning for a tear through the body of the medial meniscus. However, abnormal signal does not clearly extend to an articular surface. ACL/PCL: ACL demonstrates increased or signal on fluid sensitive sequences but appears intact. PCL appears intact and unremarkable. Extensor mechanism: There is a physiologic volume of joint fluid. There is mildly increased signal on fluid sensitive sequences in the prevertebral fat pad interposed between the median ridge of patella and distal femur. There is mild to moderate focal increased fluid signal in the superior lateral fat pad of Hoffa. The Insall-Salvati ratio measured 1.4 consistent with patella jacqueline. There is physiologic trace fluid in the deep sulcus. MCL/LCL: MCL and LCL complex are intact and unremarkable. Articular cartilage: There is possibly a shallow fissure in the articular cartilage of the mid third lateral facet of patella near median ridge. Patellar cartilage is unremarkable otherwise. There is linear low signal in the mid to upper trochlear groove likely representing a deep fissure in the articular cartilage. Additionally, there is thinning of articular cartilage in the mid to lower trochlear groove involving up to half the thickness of the articular cartilage. There is very mild thinning of articular cartilage centrally appearing region of the lateral femoral condyle and intercondylar notch in the anterior weightbearing surface. Lateral compartment articular cartilage is intact otherwise. Medial compartment articular cartilage is intact. Bones/Marrow: The lateral signal is physiologic. There are no marrow replacing lesions. Soft tissues: There is trace fluid in the Talbot cyst. MR/MR knee LT wo con IMPRESSION: There is a suspected tear of the peripheral body of the medial meniscus at the meniscocapsular junction not clearly extending to an articular surface raising question of significance. Patellar tendon-lateral femoral condyle friction syndrome. There is [id number] edema like signal superior left lateral fat pad of Hoffa. Predisposing anatomy includes patella jacqueline. There is a possible shallow fissure (grade 2) in the articular cartilage of the middle third lateral facet of patella near median ridge and focal grade II chondromalacia involving the anterocentral region of the lateral femoral condyle near the intercondylar notch. There is grade 2-3 chondromalacia involving the central and lower trochlear groove. Electronically signed by: Jorge Maciel MD 08/07/2024 02:06 PM EDT
== END 2024-08-07 09:33 | disposition home or self-care (01) ==
LOC: HO.MRI 09:32
PROVIDERS: PCP Internal Medicine; Visit Provider Orthopaedic Surgery
DX: S83.242A Other tear of medial meniscus, current injury, left knee, initial encounter (principal)
CPT/HCPCS: 73721

== ENCOUNTER 2024-08-16 09:12 | Outpatient (AMB) | payer OTHER, SELFPAY ==
--- NOTE | 2024-08-16 09:18 | A.OFFVIS_ITS ---
Vital Signs 08/16/24 09:20 Height 5 ft 2 in Weight 127 lb 13.89 oz BMI 23.4 BP 117/74 Blood Pressure Location Lt brachial Position Sitting Pulse 74 Intake Visit Reasons: Melena Intake Note: Corie presents in the office as a new patient for melena. CC: States a month ago she was having bleeding but it has been okay. It lasted 3 days. She has constipation as well. Allergies pregabalin Allergy (Intermediate, Verified 08/16/24 09:21) cough tramadol Allergy (Intermediate, Verified 08/16/24 09:21) headache HPI Comments Details: 34 y.o F with PMH of migraines, constipation, lactose intolerance who is here for an episode of blood in stools. Reports at the beginning of this year had dietary discretion with lactose and had diarrhea. Noted streaks of blood in stools. Stool itself was loose and brown. This lasted for almost 3 days. No fevers or chills but did have abd cramping. No recurrence since then. CBC done around that time with stable H/H. Of note - pt reports that despite taking lactose free milk or supplementing with lactaid she still has diarrhea with milk. Pt also takes NSAIDs regularly at least 2-3 times a day. No fam hx of colon cancer. Does not smoke, or drink. [facility] Medical History Moderate recurrent major depression Mild recurrent major depression Convulsion CRYSTAL (generalized anxiety disorder) Family history of diabetes mellitus Polyarthralgia Breast pain, right Fibromyalgia Surgical History History of removal of cyst History of section History of tubal ligation Family History Father Hypertension Mother Heart disease CVD (cardiovascular disease) Diabetes Maternal Grandmother Diabetes Chronic mental illness Maternal Grandfather No problems noted. Paternal Grandmother No problems noted. Paternal Grandfather No problems noted. Social History Housing: Apartment Alcohol intake: never Patient Tobacco Use Status: Never used Tobacco e-Cigarette/Vaping Use: Never Used Second Hand Smoke Exposure: No service: No Current occupational status: unemployed Cognitive needs: No Hearing needs: No Vision needs: Yes (Glasses) Review of Systems Const All systems reviewed & are unremarkable except as noted in HPI and below Physical Exam Vital Signs: Last Vital Signs Pulse 74 08/16/24 09:20 BP 117/74 08/16/24 09:20 BMI result Body Mass Index 23.4 No apparent distress Nonicteric Abdomen soft, nondistended Alert and oriented x3, normal gait Assessment & Plan Assessment & Plan (1) Bloody stools: Code(s): K92.1 - Melena Category: Medical (2) Food intolerance: Code(s): K90.49 - Malabsorption due to intolerance, not elsewhere classified Category: Medical Plan 1. Had one time episode of small amount of blood in stool. No recurrence since then. Ddx include hemorrhoids, fissure, colitis. No other red flags such as change in bowel habits, unintentional weight loss, fam hx etc. Mild anemia noted, iron studies borderline in 2018 - will recheck + get celiac serology. Pt on OCPs and does not menstruate. Plan: - Labs as below - Will review indication of colo depending on results. 2. Dairy intolerance Reviewed with the pt that may not have lactose intolerance if sx unchanged with lactose free milk and lactaid supplementation; and may have milk protein allergy. Should stick to dairy alternatives and discuss inspector rag sorting referral with PCP. Follow up 3 months Orders: Orders Calprotectin, Fecal Today K92.1 - Melena Transglutaminase IgA Today K92.1 - Melena IRON PROFILE Today K92.1 - Melena Ferritin Today K92.1 - Melena Complete Blood Count no Diff Today K92.1 - Melena TSH reflex Free T4 Today K92.1 - Melena Immunoglobulin A Today K92.1 - Melena Coding Level of Care Code New Pt Level 4 (68479) Diagnoses Bloody stools K92.1 Food intolerance K90.49
[2024-08-16 09:20] VITALS: BP 117/74; PULSE 74; BMI 23.4
== END 2024-08-16 09:47 | disposition home or self-care (01) ==
LOC: HO.HGI 09:14
PROVIDERS: PCP Internal Medicine; Visit Provider Internal Medicine
DX: K92.1 Melena (principal); K90.49 Malabsorption due to intolerance, not elsewhere classified
CPT/HCPCS: 99204

== ENCOUNTER 2024-08-16 09:12 | Outpatient (REF) | payer OTHER, SELFPAY ==
[2024-08-16 10:51] LABS: Hematocrit 37.1 % (37.0-47.0); Hemoglobin 12.2 g/dl (12.0-16.0); Mean Corpuscular HGB Conc 32.9 g/dl (31.0-35.0); Mean Corpuscular Hemoglobin 26.8 pg (27.0-33.0); Mean Corpuscular Volume 81.5 fL (80.0-98.0); Mean Platelet Volume 9.8 fL (9.4-12.3); Platelet Count 275 X10*3/uL (160-400); Red Blood Count 4.55 X10*6/uL (4.20-5.50); Red Cell Distribution Width 13.2 % (11.0-16.0); White Blood Count 4.8 X10*3/uL (4.8-10.8)
[2024-08-16 11:13] LABS: Iron 67 mcg/dL (30-160); Percent Iron Saturation 17 % (15-50); Total Iron Binding Capacity 405 mcg/dL (228-428); Unsaturated Iron Binding 338 ug/dL
[2024-08-16 11:32] LABS: Ferritin 8 ng/mL (10-122); TSH reflex Free T4 1.53 uIU/mL (0.32-4.0)
[2024-08-17 03:24] LABS: Immunoglobulin A 139 mg/dL (47-310)
[2024-08-17 15:54] LABS: Transglutaminase IgA <1.0 U/mL
== END 2024-08-16 09:13 | disposition home or self-care (01) ==
LOC: HO.LAB 09:12
PROVIDERS: PCP Internal Medicine; Visit Provider Internal Medicine
DX: K92.1 Melena (principal); S83.242D Other tear of medial meniscus, current injury, left knee, subsequent encounter; M17.12 Unilateral primary osteoarthritis, left knee
CPT/HCPCS: 36415; 82728; 82784; 83540; 84443; 85027; 86364; 99202; 99212

== ENCOUNTER 2024-08-16 10:32 | Outpatient (AMB) | payer OTHER, SELFPAY ==
--- NOTE | 2024-08-16 10:35 | A.OFFVIS_ITS ---
Vital Signs 08/16/24 10:36 Height 5 ft 2 in Weight 127 lb BMI 23.2 Intake Visit Reasons: OV- left knee MRI review Intake Note: Corie is a 34 year old female who presents with complaints of progressively worsening left knee pain and giving way. The patient also has intermittent right knee pain. The patient states that her left knee symptoms have gotten worse over the last year in spite of continued non operative treatments. She states that her left knee will give out several times per day. The patient states that several days ago she almost fell to the ground because of the instability. She has tried Tylenol, anti-inflammatory medicines and muscle relaxants which gave her minimal relief. She has had cortisone injections in the past which gave her minimal relief. She has not had a viscosupplementation injection. She has failed the last 3 months of conservative treatment. 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 Services: Artist Scientific Present Artist Scientific Name: [email or web address]/[email or web address] Allergies pregabalin Allergy (Intermediate, Verified 08/16/24 10:35) cough tramadol Allergy (Intermediate, Verified 08/16/24 10:35) headache Medication List - Last Reconciled 08/16/24 by Ulises Morris MD amitriptyline 10 mg PO BEDTIME 90 days carbamazepine ER 1 cap qhs x's 4 days, then 1 cap bid orally 2 times a day; 30 days docusate sodium (Colace) 100 mg PO BID PRN 30 days duloxetine 60 mg PO DAILY 30 days magnesium oxide 400 mg PO BEDTIME 90 days meloxicam 7.5 mg PO BID PRN 90 days norgestimate-ethinyl estradiol 0.25-0.035 mg (Sprintec (28)) 1 tab PO DAILY omeprazole 20 mg PO DAILY 90 days riboflavin (vitamin B2) 400 mg PO DAILY 90 days sumatriptan succinate 50 - 100 mg orally at onset of headache, may repeat in 2 hrs PRN; max 2 tabs per day or 4 tabs/week (may take with Ibuprofen) 30 days tacrolimus 0.1% topical topiramate 25 - 50 mg (1 - 2 x 25 mg) PO BEDTIME 30 days [facility] Medical History Moderate recurrent major depression Mild recurrent major depression Convulsion CRYSTAL (generalized anxiety disorder) Family history of diabetes mellitus Polyarthralgia Breast pain, right Fibromyalgia Surgical History History of removal of cyst History of section History of tubal ligation Family History Father Hypertension Mother Heart disease CVD (cardiovascular disease) Diabetes Maternal Grandmother Diabetes Chronic mental illness Maternal Grandfather No problems noted. Paternal Grandmother No problems noted. Paternal Grandfather No problems noted. Social History Housing: Apartment Alcohol intake: never Patient Tobacco Use Status: Never used Tobacco e-Cigarette/Vaping Use: Never Used Second Hand Smoke Exposure: No service: No Current occupational status: unemployed Cognitive needs: No Hearing needs: No Vision needs: Yes (Glasses) Physical Exam Vital Signs: BMI result Body Mass Index 23.2 Const Other: Well-nourished well-developed very friendly female awake alert and oriented x3 in no acute distress Extrem Other: Bilateral lower extremity examination shows good capillary refill, no skin lesions noted, normal sensation light touch Left knee examination shows a minimal effusion, mild crepitus with range of motion, tenderness along her medial joint line, positive Shon's test Results Reviewed Results Reviewed: MRI of the patient's left knee shows mild diffuse degenerative changes as well as a medial meniscus tear Assessment & Plan Assessment & Plan (1) Tear of medial meniscus of left knee: Code(s): S83.242A - Other tear of medial meniscus, current injury, left knee, initial encounter Category: Medical (2) Osteoarthritis of left knee: Code(s): M17.12 - Unilateral primary osteoarthritis, left knee Category: Medical Plan Ms. Kenton Dennis presents with left knee pain due to early degenerative joint disease as well as a medial meniscus tear. I had a lengthy discussion with the patient regarding the treatment options. The risks and benefits of a viscosupplementation injection versus arthroscopic surgery were discussed at length with the patient. The patient wishes to think over her options. If she does elect to undergo surgery the surgery will most likely involve left knee arthroscopic partial medial meniscectomy. She does understand that she may not get 100% relief of her symptoms depending on the severity of her degenerative changes. The patient will follow-up as instructed. Feel free to call me at any time should questions regarding her orthopedic management arise. I spent 21 minutes in reviewing the patient's records and imaging studies, seeing the patient and documenting in the medical record. Coding Level of Care Code Est Pt Level 3 (49794) Complex EM visit Add On G2211 Diagnoses Tear of medial meniscus of left knee S83.242A Osteoarthritis of left knee M17.12
[2024-08-16 10:36] VITALS: BMI 23.2
== END 2024-08-16 11:02 | disposition home or self-care (01) ==
LOC: HO.HOS 10:33
PROVIDERS: PCP Internal Medicine; Visit Provider Orthopaedic Surgery
DX: S83.242A Other tear of medial meniscus, current injury, left knee, initial encounter (principal); M17.12 Unilateral primary osteoarthritis, left knee
CPT/HCPCS: 99213; G2211

== ENCOUNTER 2024-08-17 11:41 | Outpatient (REF) | payer OTHER, SELFPAY ==
[2024-08-23 19:23] LABS: Calprotectin, Fecal 9 mcg/g
== END 2024-08-17 11:42 | disposition home or self-care (01) ==
LOC: HO.LNP 11:41
PROVIDERS: Visit Provider Internal Medicine
DX: K92.1 Melena (principal)
CPT/HCPCS: 83993

== ENCOUNTER 2024-08-31 08:34 | Outpatient (AMB) | payer OTHER, SELFPAY ==
--- NOTE | 2024-08-31 09:01 | A.OFFVIS_ITS ---
Vital Signs 08/31/24 09:02 Height 5 ft 2 in BP 109/72 Blood Pressure Location Lt brachial Position Sitting Respiration 18 Pulse 70 Pulse Source Pulse Oximeter Pulse Oximetry (%) 100 Oxygen Delivery Method Room Air Intake Visit Reasons: 8 weeks FU after PT Language Path Required: Yes Allergies pregabalin Allergy (Intermediate, Verified 08/31/24 09:03) cough tramadol Allergy (Intermediate, Verified 08/31/24 09:03) headache HPI Comments Details: Corie is back in my office for the follow-up appointment. This appointment was supposed to be after she would complete physical therapy. Unfortunately patient stated that she never received any telephone call from physical therapy. I will renew the order physical therapy I am sure they were trying to connect with her. I recommended her to get into contact with us if she would not hear anything from physical therapy in 5 business days. I will see her after she will com plete physical therapy in 5 weeks. Prior: pain in the base of the neck pain in the upper back pain in the lower back as well as pain in bilateral knees pain in bilateral shoulders. She was diagnosed by manager transfusion with fibromyalgia. She is also under observation with neurologist with diagnosis of trigeminal neuralgia and migraine headaches. She reports today her pain level 6 to 7/10. She reports that pain started 2-3 years ago. Has not know the reason pain started. She had multiple studies performed on her brain in [facility], she had x-ray of the thoracic spine. The dictation of the x-ray of the thoracic spine see as below. She had physical therapy in the past for her hip condition however never had physical therapy for her back pain. She never had any injections short of epidural injections with catheter for acute labor pain. Her past medical history significant for migraine headaches 1 episode of epilepsy history of fatigue history of dizziness history of depression asthma frequent UTIs and endometriosis. She had 1 section, tubal ligation after the . She denies smoking cigarettes denies drinking alcohol denies coffee or caffeinated beverages denies recreational drugs. COUNTS INCLUDE 234 BEDS AT THE [facility] Medical History Moderate recurrent major depression Mild recurrent major depression Convulsion CRYSTAL (generalized anxiety disorder) Family history of diabetes mellitus Polyarthralgia Breast pain, right Fibromyalgia Surgical History History of removal of cyst History of section History of tubal ligation Family History Father Hypertension Mother Heart disease CVD (cardiovascular disease) Diabetes Maternal Grandmother Diabetes Chronic mental illness Maternal Grandfather No problems noted. Paternal Grandmother No problems noted. Paternal Grandfather No problems noted. Social History Housing: Apartment Alcohol intake: never Patient Tobacco Use Status: Never used Tobacco e-Cigarette/Vaping Use: Never Used Second Hand Smoke Exposure: No service: No Current occupational status: unemployed Cognitive needs: No Hearing needs: No Vision needs: Yes (Glasses) Review of Systems Const All systems reviewed & are unremarkable except as noted in HPI and below ENT Reports Normal hearing present Neuro Reports Normal hearing present, Denies Abnormal speech present, Denies confusion and Denies Sensory deficit (Neuro) Psych Denies confusion Physical Exam Vital Signs: Last Vital Signs Pulse 70 08/31/24 09:02 Resp 18 08/31/24 09:02 BP 109/72 08/31/24 09:02 Pulse Ox 100 08/31/24 09:02 Oxygen Delivery Method Room Air 08/31/24 09:02 Const General: no acute distress; No confusion Orientation/consciousness: patient oriented x3 and No confusion Eyes General: appearance normal, both eyes and all related structures Pupils: Equal, round and reactive pupils present EOM: EOMs intact bilaterally Neck Neck: Yes full ROM Chest Chest palpation & inspection: normal inspection of the chest Resp Effort & Inspection: normal respiratory effort, able to speak in complete sentences, normal respiratory pattern, no audible wheezes and no cough Cardio Jugular venous distension: no JVD GI Inspection: Yes normal to inspection Back/Spine/Pelvis Other: There is tenderness on palpation in paraspinal spinal region entire spine. Flexing forward aggravates pain more than flexing backwards. There is positive Vinny test on the right and negative on the left. SLR is negative bilaterally. Neuro General: patient oriented x3, gait normal and No confusion Cranial nerves: Yes CN's II-XII intact bilaterally, Yes Equal, round and reactive pupils present, Yes Normal hearing present and Yes Ability to bilaterally elevate shoulders present Speech: No Abnormal speech present Gait exam (Neuro): Normal gait present Motor exam (neuro): 5/5 motor strength present throughout Sensory Exam: No Sensory deficit (Neuro) Extrem General: No pedal edema Psych Speech and movement: Normal speech and movement present Affect: normal affect Attitude: cooperative Thought process: Normal thought process present Thought content: Normal thought content present Insight: Good insight present (Psych) Judgement: Good judgement present (Psych) Results Reviewed Results Reviewed: X-ray Thoracic spine: Trace thoracolumbar scoliosis, otherwise alignment is normal. Vertebral bodies and intervertebral discs are maintained in height. Pedicles and visualized ribs are intact. No focal paravertebral soft tissue swelling seen. Subcentimeter calcification left base may be granuloma. Bilateral elbows: Alignment and articulations are normal. No fracture or dislocation bilaterally. No joint effusions. Bilateral knees: No fracture, dislocation or joint effusion bilaterally. No significant joint space narrowings. Alignment and articulations are maintained. Assessment & Plan Assessment & Plan (1) Fibromyalgia: Code(s): M79.7 - Fibromyalgia Category: Medical (2) Spondylosis, thoracic: Code(s): M47.814 - Spondylosis without myelopathy or radiculopathy, thoracic region Category: Medical (3) Intractable back pain: Code(s): M54.9 - Dorsalgia, unspecified Category: Medical (4) Spondylosis without myelopathy or radiculopathy, lumbar region: Code(s): M47.816 - Spondylosis without myelopathy or radiculopathy, lumbar region Category: Medical Plan This patient is most likely suffering from fibromyalgia and related spondylosis of the lumbar spine. I I sent her for physical therapy however However she failed to attend the PT. I will order it again for her. Orders: Orders PT Evaluation and Treatment Today M47.814 - Spondylosis without myelopathy or radiculopathy, thoracic region, M47.816 - Spondylosis without myelopathy or radiculopathy, lumbar region Coding Level of Care Code Est Pt Level 3 (82765) Diagnoses Fibromyalgia M79.7 Spondylosis, thoracic M47.814 Intractable back pain M54.9 Spondylosis without myelopathy or radiculopathy, lumbar region M47.816
[2024-08-31 09:02] VITALS: BP 109/72; PULSE 70; RESP 18; O2SAT 100
== END 2024-08-31 09:15 | disposition home or self-care (01) ==
LOC: HO.PMC 08:34
PROVIDERS: PCP Internal Medicine; Visit Provider Anesthesiology
DX: M79.7 Fibromyalgia (principal); M47.814 Spondylosis without myelopathy or radiculopathy, thoracic region; M54.9 Dorsalgia, unspecified; M47.816 Spondylosis without myelopathy or radiculopathy, lumbar region
CPT/HCPCS: 99213

== ENCOUNTER → 2024-08-31 08:34 | Outpatient (BNVA) | payer OTHER, SELFPAY | PROVIDERS: PCP Internal Medicine; Visit Provider Anesthesiology | DX: M79.7 Fibromyalgia (principal); M47.814 Spondylosis without myelopathy or radiculopathy, thoracic region; M54.9 Dorsalgia, unspecified; M47.816 Spondylosis without myelopathy or radiculopathy, lumbar region | CPT/HCPCS: 99212 ==

== ENCOUNTER 2024-10-06 09:08 | Outpatient (RCR) | payer OTHER, SELFPAY | END 2024-11-30 15:17 | disposition home or self-care (01) | LOC: HO.PTS 09:08 | PROVIDERS: PCP Internal Medicine; Visit Provider Anesthesiology | DX: M47.814 Spondylosis without myelopathy or radiculopathy, thoracic region (principal); M47.816 Spondylosis without myelopathy or radiculopathy, lumbar region | CPT/HCPCS: 97110; 97161; 97530; 97535 ==

== ENCOUNTER 2024-11-15 09:35 | Outpatient (AMB) | payer OTHER, SELFPAY ==
--- NOTE | 2024-11-15 09:42 | A.OFFVIS_ITS ---
Vital Signs 11/15/24 09:43 Height 5 ft 2 in Weight 127 lb 13.89 oz BMI 23.4 BP 115/74 Blood Pressure Location Lt brachial Position Sitting Pulse 82 Intake Visit Reasons: 3 mo f/u Intake Note: Corie presents in the office as a 3month follow up. CC: She states that she is is having diarrhea but denies other GI symptoms. Die Maintenance Required: No Allergies pregabalin Allergy (Intermediate, Verified 08/31/24 09:03) cough tramadol Allergy (Intermediate, Verified 08/31/24 09:03) headache HPI Comments Details: 34 y.o F with PMH of migraines, constipation, lactose intolerance who is here for an episode of blood in stools. Reports at the beginning of this year had dietary indiscretion with lactose and had diarrhea. Noted streaks of blood in stools. Stool itself was loose and brown. This lasted for almost 3 days. No fevers or chills but did have abd cramping. No recurrence since then. CBC done around that time with stable H/H. Of note - pt reports that despite taking lactose free milk or supplementing with lactaid she still has diarrhea with milk. Pt also takes NSAIDs regularly at least 2-3 times a day. No fam hx of colon cancer. Does not smoke, or drink. 11/15/24: Here for follow up. Seen with the help of translator and interpreter. Reports no change in symptoms however also does not appear to have incorporated changes discussed during the last visit. Reports postprandial bloating with cramping, associated with with fluctuating bowel movements between constipation and frequent formed stool. Continues to consume dairy. FODMAP diet not incorporated yet. Labs reviewed, low likelihood for celiac or inflammatory bowel disease at this time. Has not had recurrence of blood in stool Laboratory Tests 08/16/24 08/17/24 10:08 08:16 Hgb 12.2 Hct 37.1 Plt Count 275 Iron 67 Unsat Iron Binding 338 Ferritin 8 L Stool Calprotectin 9 IgA 139 Tiss Transglutamin IgA <1.0 PFSH Medical History Moderate recurrent major depression Mild recurrent major depression Convulsion CRYSTAL (generalized anxiety disorder) Family history of diabetes mellitus Polyarthralgia Breast pain, right Fibromyalgia Surgical History History of removal of cyst History of section History of tubal ligation Family History Father Hypertension Mother Heart disease CVD (cardiovascular disease) Diabetes Maternal Grandmother Diabetes Chronic mental illness Maternal Grandfather No problems noted. Paternal Grandmother No problems noted. Paternal Grandfather No problems noted. Social History Housing: Apartment Alcohol intake: never Patient Tobacco Use Status: Never used Tobacco e-Cigarette/Vaping Use: Never Used Second Hand Smoke Exposure: No service: No Current occupational status: unemployed Cognitive needs: No Hearing needs: No Vision needs: Yes (Glasses) Review of Systems Const All systems reviewed & are unremarkable except as noted in HPI and below Physical Exam Exam Exam: No apparent distress Nonicteric Abdomen soft, nondistended Alert and oriented x3, normal gait Vital Signs: Last Vital Signs Pulse 82 11/15/24 09:43 BP 115/74 11/15/24 09:43 BMI result Body Mass Index 23.4 Assessment & Plan Assessment & Plan (1) Irritable bowel syndrome with alternating bowel habits: Code(s): K58.2 - Mixed irritable bowel syndrome Category: Medical (2) Bloating: Code(s): R14.0 - Abdominal distension (gaseous) Category: Medical Plan Discussed extensive the patient and reassured her that workup so far consistent with irritable bowel syndrome. Again encouraged to avoid food triggers such as gluten and dairy. A handout on low FODMAP diet was also provided. Incorporate soluble fiber, okay to supplement with [id number] options. No indication for emergent endoscopic evaluation at this time. Follow-up six-month Coding Level of Care Code Est Pt Level 4 (89876) Diagnoses Irritable bowel syndrome with alternating bowel habits K58.2 Bloating R14.0
[2024-11-15 09:43] VITALS: BP 115/74; PULSE 82; BMI 23.4
--- OUTSIDE RECORDS SUMMARY | 2024-11-15 11:29 | XMS_ITS | Clinical Summary ---
Author Organization [facility] Address [address] [facility] [address] [place] [id number] Phone Care Team Providers Care Screen Machine Operator Name Role Phone Nicci Zhao MD Primary Care Provid er Allergies Active Allergy Reactions Criticality Noted Date Comments Tramadol 06/23/2022 Medications naproxen (NAPROSYN) 500 MG tablet Take 1 tablet (500 mg total) by mouth 2 (two) times a day with meals. 20 tablet 3 Active norgestimate-e thinyl estradioL (ORTHO-CYCLEN) 0.25-0.035 mg per tabletIndicati ons:endometrio sis Take 1 tablet by mouth daily. Indications: endometriosis Active phenazopyridin e (PYRIDIUM) 200 MG tablet Take 1 tablet (200 mg total) by mouth 3 (three) times a day as needed for pain (specific location in comments). 10 tablet 4 Active ibuprofen (MOTRIN) 600 mg tablet (To-Go) Take 1 tablet by mouth every 6 hours as needed for pain. 5 Active guaiFENesin (ROBITUSSIN) 100 mg/5 mL syrup Take 10 mL (200 mg total) by mouth 3 (three) times a day as needed for cough. 120 mL 5 Active Social History Tobacco Use Types Packs/Day Years Used Date Smoking Tobacco: Never Smokeless Tobacco: Never Tobacco Cessation:Counseling Given: Not Answered Alcohol Use Standard Drinks/Week Comments Not Currently 0 (1 standard drink = 0.6 oz pur e alcohol) Education Answer Date Recorded Are you interested in more education? Not on john paul e 07/04/2022 Are you concerned about learning? Not on file 07/04/2022 No 07/04/2022 No 07/04/2022 Digital Access Answer Date Recorded No 08/04/2022 No 08/04/2022 Reliable internet access at home? Not on file 08/04/2022 Device with a working camera? Not on file Intimate Partner Violence Answer Date R ecorded Are you denied basic needs s uch as food, clothing, or medical care? No 04/14/2024 In the past 12 months have y ou been in a relationship with a person who hurts, threatens, or tries to control you? No 04/14/2024 Are you denied basic needs s uch as food, clothing, or medical care? No 04/14/2024 In the past 12 months have y ou been in a relationship with a person who hurts, threatens, or tries to control you? No 04/14/2024 Comments Unknown Sex and Gender Information Value Date Recorded Sex Assigned at Female 01/07/2024 7:39 PM EDT Legal Sex Female 12:09 PM EDT Gender Identity Female 01/07/2024 7:39 PM EDT Sexual Orientation Don't know 01/07/2024 7: 39 PM EDT Last Filed Vital Signs Vital Sign Reading Time Taken Comments Blood Pressure 115/82 04/14/2024 7:39 PM EST Pulse 92 04/14/2024 7:39 PM EST Temperature 37.3 C (99.1 F) 04/14/2024 7:39 PM EST Respiratory Rate 16 04/14/2024 7:39 PM EST Oxygen Saturation 99% 04/14/2024 7:39 PM EST Inhaled Oxygen Concentration - - Weight 63.5 kg (140 lb) 01/07/2024 5:50 PM EDT Height 157.5 cm (5' 2 ) 01/07/2024 5:50 PM EDT Body Mass Index 25.61 01/07/2024 5:50 PM EDT Plan of Treatment Health Maintenance Due Date Last Done Comments Adult Td,Tdap Booster 1988 DEPRESSION SCREENING 2000 HEPATITIS C SCREENING 2006 HIV ONE-TIME SCREENING (18-6 5 YEARS) 2006 PAP SMEAR 2009 INFLUENZA VACCINE (#1) 2024 COVID-19 VACCINE (2023-2 5 season) 2024 SCREENING FOR DIABETES 06/23/2025 06/23/2022 SMOKING STATUS SCREENING (On ce After 26 Yrs) Completed 06/23/2022 HEPATITIS A VACCINES Aged Out No long er eligible based on patient's age to complete this topic HIB VACCINES Aged Out No longer eligi ble based on patient's age to complete this topic MENINGOCOCCAL VACCINES (ACWY) Aged Out No longer eligible based on patient's age to complete this topic MENINGOCOCCAL VACCINES (B) Aged Out N o longer eligible based on patient's age to complete this topic PNEUMOCOCCAL VACCINES (0-49 years) Aged Out No longer eligible based on patient's age to complete this topic Medical Devices Not on file Insurance ACO ACO ACO [place]CO [address], [place] [address] [facility] [place] [place] [id number] Care Teams Screen Machine Operator Relationship Specialty Start Date End Date Nicci Zhao MD [address] [place] [address] PCP - General Internal Medicine 06/23/22 Additional Source Comments The information contained in this document represents components of the legal health record. It is not the complete legal health record.[facility]
== END 2024-11-15 10:17 | disposition home or self-care (01) ==
LOC: HO.HGI 09:39
PROVIDERS: PCP Internal Medicine; Visit Provider Internal Medicine
DX: K58.2 Mixed irritable bowel syndrome (principal); R14.0 Abdominal distension (gaseous)
CPT/HCPCS: 99214

== ENCOUNTER → 2024-11-15 09:35 | Outpatient (BNVA) | payer OTHER, SELFPAY | PROVIDERS: PCP Internal Medicine; Visit Provider Internal Medicine | DX: K58.2 Mixed irritable bowel syndrome (principal); R14.0 Abdominal distension (gaseous) | CPT/HCPCS: 99212 ==

== ENCOUNTER 2024-11-24 11:30 | Emergency (ER) | payer OTHER, SELFPAY ==
--- NOTE | ~2024-11-24 | CT_ITS ---
CLINICAL HISTORY: Abdominal pain bloody diarrhea CT abdomen and pelvis with contrast Comparison: None provided Findings: No consolidation or effusion. Cardiac size is normal. Hepatic parenchyma is normal. Gallbladder is distended. No cholelithiasis. Pancreas is normal. Spleen is normal. Stomach is distended. Small bowel is normal. Cecum is normal. The appendix measures 6 mm with gaseous distention of the appendiceal tip. This extends into the pelvis. The ascending, transverse, and descending colon are normal. There is no significant wall thickening of the decompressed sigmoid colon. Rectal vault is normal. There is soft tissue stranding and edema at the cervix. Uterus appears normal. Bladder is partially distended. No adenopathy. No pneumatosis or pneumoperitoneum. The bones are intact. IMPRESSION: No acute findings. Gas-filled appendix appears normal. This document has been electronically signed by: Karl Ramos III, MD PHD on 11/25/2024 04:55:33
[2024-11-24 11:52] VITALS: BP 133/68; PULSE 78; RESP 16; TEMP 36.7; O2SAT 99; BMI 22.6
--- NOTE | 2024-11-24 11:52 | ED_ITS ---
HPI - General Adult General Chief complaint: GI Bleed Stated complaint: rectal bleeding Time Seen by Provider: 11/24/24 18:19 Source: patient and talent consultant Mode of arrival: ambulatory Limitations: language barrier History of Present Illness ED Provider: Dr. Terra Chen HPI narrative: 34-year-old female with history of trigeminal neuralgia, fibromyalgia and polyarthralgia presenting with bloody stools, diarrhea, occasional mucus in her stool ongoing for the last 5 days or so. Describes associated bilateral flank pain radiating into her lower abdomen as well as a decreased appetite. Admits that when she has bowel movements, she does not feel as though she is emptying her bowels completely. Feel that that symptom has been ongoing for more than 5 days though. Pain in her abdomen and back is worse when she is about to have a bowel movement. No reported fever. Denies associated vomiting. Admits to poor fluid intake. No questionable food intake or recent travel. No known sick contacts. No vaginal bleeding or discharge. Related Data Home Medications ?Medication ?Instructions ?Recorded ?Confirmed norgestimate 0.25 mg-ethinyl 1 tab PO DAILY 06/06/20 0 11/29/24 estradiol 0.035 mg tablet (Sprintec (28)) tacrolimus 0.1 % topical ointment topical 03/28/24 Previous Rx's ?Medication ?Instructions ?Recorded meloxicam 7.5 mg tablet 7.5 mg PO BID PRN pain 90 da ys 12/07/22 #180 tabs riboflavin (vitamin B2) 400 mg 400 mg PO DAILY 90 days #90 tabs 05/30/24 tablet amitriptyline 10 mg tablet 10 mg PO BEDTIME 90 days #9 0 tabs 07/19/24 ferrous sulfate 325 mg (65 mg 325 mg PO DAILY #90 tabs 09/05/24 iron) tablet omeprazole 20 mg capsule,delayed 20 mg PO DAILY 90 day s #90 caps 10/04/24 release psyllium husk 2.6 gram/4.1 gram 1 tbsp PO BID #480 gra ms 11/25/24 oral powder carbamazepine 100 mg 100 mg PO TID 30 days #90 ca ps 11/29/24 capsule,extended release [id number] docusate sodium 100 mg capsule 100 mg PO BID PRN const ipation 30 11/29/24 (Colace) days #60 caps duloxetine 60 mg capsule,delayed 60 mg PO DAILY 30 day s #30 caps 11/29/24 release rizatriptan 10 mg tablet 5 - 10 mg (0.5 - 1 x 10 mg) PO Q2H 11/29/24 PRN migraine headache 21 days #12 tabs Allergies Allergy/AdvReac Type Severity Reaction Status Date / Time pregabalin Allergy Intermediate cough Verified 11/29/24 08:08 tramadol Allergy Intermediate headache Verified 11/29/24 08:08 Review of Systems 2 Review of Systems: as per HPI, full review of systems performed and negative but for the above mentioned pertinent positives and negatives. [facility] Past Medical History Medical History Moderate recurrent major depression Mild recurrent major depression Convulsion CRYSTAL (generalized anxiety disorder) Family history of diabetes mellitus Polyarthralgia Breast pain, right Fibromyalgia Surgical History History of removal of cyst History of section History of tubal ligation Family History Family History Father Hypertension Mother Heart disease CVD (cardiovascular disease) Diabetes Maternal Grandmother Diabetes Chronic mental illness Maternal Grandfather No problems noted. Paternal Grandmother No problems noted. Paternal Grandfather No problems noted. Social History Social History Housing: Apartment Alcohol intake: never Patient Tobacco Use Status: Never used Tobacco e-Cigarette/Vaping Use: Never Used Second Hand Smoke Exposure: No service: No Current occupational status: unemployed Cognitive needs: No Hearing needs: No Vision needs: Yes (Glasses) Physical Exam ED Exam Exam: GENERAL: Well-Appearing, conversant, no acute distress. SKIN: Normal skin color for ethnicity, warm, dry, no rashes noted. HEENT:? Normocephalic, atraumatic, no stridor, posterior oropharynx nonerythematous, dentition intact, EOMI. NECK: Soft, supple, full ROM, midline structures nontender, no step-offs, no deformities, no lymphadenopathy. CHEST: Heart regular rate and rhythm, no murmurs, symmetric chest rise and fall. PULMONARY: Clear to auscultation bilaterally, no labored breathing, no wheezes/rhales/rhonchi. ABDOMINAL: Soft, nondistended, nontender, quiet bowel sounds in all quadrants. : Deferred. MUSCULOSKELETAL: Normal tone, full range of motion, no deformities, no peripheral edema. NEURO: Alert and oriented x3, CN II through XII intact, equal strength and sensation bilateral upper and lower extremities, no focal neurologic deficits.? PSYCHIATRIC: Normal affect, fluid speech, good eye contact and appropriate demeanor. Vital Signs: Vital Signs - 24 hr 11/24/24 11:52 11/24/24 18:09 11/24/24 19:08 Temperature 98.0 F 98.6 F Pulse Rate 78 74 69 Respiratory Rate 16 16 18 Blood Pressure 133/68 127/53 L 131/70 Pulse Oximetry 99 100 100 Oxygen Delivery Method Room Air Room Air Room Air 11/25/24 00:00 11/25/24 00:30 11/25/24 01:00 Temperature 98.5 F Pulse Rate 73 Respiratory Rate 18 16 Blood Pressure 97/58 L Pulse Oximetry 98 Oxygen Delivery Method Room Air 11/25/24 03:13 Temperature 98.5 F Pulse Rate 91 Respiratory Rate 18 Blood Pressure 100/54 L Pulse Oximetry 98 Oxygen Delivery Method Room Air BMI result Body Mass Index 22.6 Course Course Course Narrative: RME, this is a rapid medical exam performed by [place] Combs please refer to primary provider for complete H&P- 34 year old female presents for evaluation lower abdominal pain, rectal pain, and rectal bleeding for about 5-6 days. Plan for labs, and a UA Medications Administered Discontinued Medications Generic Name Dose Route Start Last Admin Trade Name Destinq PRN Reason Stop Dose Admin Hydromorphone HCl 0.5 mg 11/24/24 22:31 11/25/24 00:30 Hydromorphone Hcl 0.5 Mg/0.5 Ml Syringe IVPUSH 11/24/24 22:32 0.5 mg ONCE ONE Administration Protocol Sodium Chloride 1,000 mls @ 999 mls/hr 11/24/24 22:45 11/25/24 03:14 Ns IV 11/24/24 23:45 Infused .Q1H1M JAQUELINE Infusion Sodium Chloride 1,000 mls @ 999 mls/hr 11/24/24 22:45 11/25/24 03:14 Ns IV 11/24/24 23:45 Infused .Q1H1M JAQUELINE Infusion Iohexol 85 ml 11/25/24 01:10 11/25/24 01:11 Iohexol 350 Mg/Ml 100 Ml Infus..Btl IV 11/25/24 01:11 85 ml ONCE ONE Administration Ondansetron HCl 4 mg 11/24/24 22:31 11/25/24 00:31 Ondansetron Hcl 4 Mg/2 Ml Vial IVPUSH 11/24/24 22:32 4 mg ONCE ONE Administration Medical Decision Making Medical Decision Making [facility] Narrative: Patient presents today with a chief complaint of possible GI bleed. Differential diagnosis includes rectal bleeding from sources such as a fissure, hemorrhoid, lower GI bleed, diverticulitis, upper GI bleeding, peptic ulcer disease, perforation, esophageal bleed, among many others. Broad-based work-up was initiated based on the patient's presentation. There is no evidence of anemia today. Patient is refusing a rectal exam. It sounds like she is having a lot of decreased oral intake in certainly is not taking in enough fluids or fiber. CT of the abdomen and pelvis is negative for appendicitis. She is tolerating oral intake here in the emergency department. Using shared decision making, plan for discharge home to follow-up with primary care and/or specialist. Encouraged fiber and fluid intake. Patient understands and agrees with plan for discharge. Discharged home in stable condition. Differential Diagnosis Differential Diagnoses: The differential diagnosis associated with the presentation includes (as above) Admission/Observation Consideration of admission/observation: Escalation of care including admission/observation considered Lab Data [facility] Lab Attestation statement: I reviewed the patient's lab results. 11/24/24 13:01 11/24/24 13:01 Labs: Lab Results 11/24/24 11/24/24 Range/Units 13:01 19:50 WBC 10.8 (4.8-10.8) X10*3/uL RBC 4.78 (4.20-5.50) X10*6/uL Hgb 13.4 (12.0-16.0) g/dl Hct 38.6 (37.0-47.0) % MCV 80.8 (80.0-98.0) fL MCH 28.0 (27.0-33.0) pg MCHC 34.7 (31.0-35.0) g/dl RDW 12.8 (11.0-16.0) % Plt Count 269 (160-400) X10*3/uL MPV 9.1 L (9.4-12.3) fL Immature Gran % (Auto) 0.2 (0.0-0.4) % Neut % (Auto) 80.7 H (45-73) % Lymph % (Auto) 12.9 L (20-40) % [place] % (Auto) 4.9 (2-11) % Eos % (Auto) 0.9 (0-4) % Baso % (Auto) 0.4 (0-2) % Lymph # (Auto) 1.4 (1.2-4.9) X10*3/uL [place] # (Auto) 0.5 (0.1-1.2) X10*3/uL Eos # (Auto) 0.1 (0.0-0.4) X10*3/uL Baso # (Auto) 0.0 (0.0-0.2) X10*3/uL Abs Immat Gran (auto) 0.02 (0.00-0.03) X10*3/uL Absolute Neuts (auto) 8.7 H (2.0-8.3) x10*3/uL Absolute Nucleated RBC 0.000 (0.0-0.012) X10*3/uL Nucleated RBC % (auto) 0.0 (0.0-0.2) /100WBC Sodium 140 (135-145) mmol/L Potassium 4.1 (3.3-5.1) mmol/L Chloride 109 H (96-108) mmol/L Carbon Dioxide 25 (22-29) mmol/L Anion Gap 10 L (12-20) BUN 8 L (9-16) mg/dL Creatinine 0.66 (0.5-1.4) mg/dL Estim Creat Clear Calc 93.2 Estimated GFR > 60 Random Glucose 81 (60-115) mg/dL Calcium 9.6 D (8.4-10.2) mg/dL Total Bilirubin 0.3 (0.0-1.0) mg/dL AST 18 (5-31) U/L ALT 11 (0-31) U/L Alkaline Phosphatase 92 (39-117) U/L Total Protein 7.8 (6.5-8.0) g/dL Albumin 4.8 (3.5-5.0) g/dL Lipase 21 (8-78) U/L Beta HCG, Quant < 2 mIU/mL Urine Color Yellow Urine Appearance Clear Urine pH 6.0 (5.0-9.0) Ur Specific [place] 1.025 (1.005-1.025) Urine Protein Trace (Neg-Trace) mg/dL Urine Glucose (UA) Negative (Negative) mg/dL Urine Ketones >=160 (Negative) mg/dL Urine Blood Moderate (2+) H (Negative) Urine Nitrite Negative (Negative) Ur Leukocyte Esterase Negative (Negative) Urine RBC 6-10 H (0-2) /HPF Urine WBC 0-5 (0-5) /HPF Ur Squamous Epith Cells 0-2 (0-2) /HPF Urine Bacteria None Seen (None Seen) Hyaline Casts 0-2 (0-2) /LPF Urine Test NEGATIVE (NEGATIVE) Radiology Impression Discussion of test interpretation with radiology: I have reviewed the radiologist's reading. Radiologist Impression: CT abdomen and pelvis with contrast Comparison: None provided Findings: No consolidation or effusion. Cardiac size is normal. Hepatic parenchyma is normal. Gallbladder is distended. No cholelithiasis. Pancreas is normal. Spleen is normal. Stomach is distended. Small bowel is normal. Cecum is normal. The appendix measures 6 mm with gaseous distention of the appendiceal tip. This extends into the pelvis. The ascending, transverse, and descending colon are normal. There is no significant wall thickening of the decompressed sigmoid colon. Rectal vault is normal. There is soft tissue stranding and edema at the cervix. Uterus appears normal. Bladder is partially distended. No adenopathy. No pneumatosis or pneumoperitoneum. The bones are intact. IMPRESSION: No acute findings. Gas-filled appendix appears normal. This document has been electronically signed by: Karl Ramos III, MD PHD on 11/25/2024 04:55:33 External Record Review External record reviewed: Inpatient record Prescription Management I considered prescription management with: Pain Medication and Other (fiber) Chronic Conditions Patient?s care impacted by: Other (IBS, fibromyalgia) Discharge Plan Discharge Clinical Impression: Irritable bowel syndrome with alternating bowel habits, GIB (gastrointestinal bleeding) Patient Disposition: Home, Self-Care Instructions: Irritable Bowel Syndrome (ED) Additional Instructions: Drink plenty of fluids for the next several days. Try using fiber additives to help with regulation of your bowels. Return to the ER with any new or worsening symptoms including: worsening bleeding, passing out, fevers >100 degrees, chest pain or difficulty breathing. Constipation Remedy 1 Lb prunes 1 Lb pitless dates 1 Lb raisins 16 teabags Smooth Move tea brewed in 2 cups water 1 Cup brown sugar 1 Cup lemon juice Mix in a powder blender and pourer Put in freezer (never completely freezes) Can be used as a spread on crackers, toast, etc. (about 1-2 tablespoons per dose) Prescriptions: New psyllium husk 2.6 gram/4.1 gram powder 1 tbsp PO BID Qty: 480 0RF Rx Instructions: mix into at least 8 oz of water or juice before administering No Action ferrous sulfate 325 mg (65 mg iron) tablet 325 mg PO DAILY Qty: 90 0RF omeprazole 20 mg capsule,delayed release(DR/EC) 20 mg PO DAILY 90 Days Qty: 90 1RF docusate sodium [Colace] 100 mg capsule 100 mg PO BID PRN (Reason: constipation) 30 Days Qty: 60 0RF duloxetine 60 mg capsule,delayed release(DR/EC) 60 mg PO DAILY 30 Days Qty: 30 0RF meloxicam 7.5 mg tablet 7.5 mg PO BID PRN (Reason: pain) 90 Days Qty: 180 1RF norgestimate-ethinyl estradiol [Sprintec (28)] 0.25-35 mg-mcg tablet 1 tab PO DAILY amitriptyline 10 mg tablet 10 mg PO BEDTIME 90 Days Qty: 90 1RF tacrolimus 0.1 % ointment topical riboflavin (vitamin B2) 400 mg tablet 400 mg PO DAILY 90 Days Qty: 90 3RF carbamazepine 100 mg capsule, ER multiphase 12 hr 100 mg PO TID 30 Days Qty: 90 3RF rizatriptan 10 mg tablet 5 - 10 mg PO Q2H PRN (Reason: migraine headache) 21 Days Qty: 12 3RF Rx Instructions: max 3 tabs per day or 6 tabs per week Interventions: ED Discharge Assessment Last Done: 11/25/24 06:17 Discharge Date/Time: 11/25/24 06:18 Print Language: Uzbek
[2024-11-24 13:05] LABS: MANUAL DIFF FLAG NO
[2024-11-24 13:12] LABS: Hematocrit 38.6 % (37.0-47.0); Hemoglobin 13.4 g/dl (12.0-16.0); Imm Gran Abs Auto 0.02 X10*3/uL (0.00-0.03); Imm Gran Pct Auto 0.2 % (0.0-0.4); Lymphocytes Absolute Auto 1.4 X10*3/uL (1.2-4.9); Mean Corpuscular HGB Conc 34.7 g/dl (31.0-35.0); Mean Corpuscular Hemoglobin 28.0 pg (27.0-33.0); Mean Corpuscular Volume 80.8 fL (80.0-98.0); NRBC Abs Auto 0.000 X10*3/uL (0.0-0.012); NRBC Pct Auto 0.0 /100WBC (0.0-0.2); Platelet Count 269 X10*3/uL (160-400); Red Blood Count 4.78 X10*6/uL (4.20-5.50); White Blood Count 10.8 X10*3/uL (4.8-10.8)
[2024-11-24 13:27] LABS: Alanine Aminotransferase 11 U/L (0-31); Albumin Level 4.8 g/dL (3.5-5.0); Alkaline Phosphatase 92 U/L (39-117); Anion Gap 10 (12-20); Aspartate Amino Transferase 18 U/L (5-31); Blood Urea Nitrogen 8 mg/dL (9-16); Calcium 9.6 mg/dL (8.4-10.2); Carbon Dioxide 25 mmol/L (22-29); Chloride 109 mmol/L (96-108); Creatinine Clr Calc Pharmacy 93.2; Estimated Glomerular Filt Rate > 60; Lipase 21 U/L (8-78); Potassium 4.1 mmol/L (3.3-5.1); Sodium 140 mmol/L (135-145); Total Protein 7.8 g/dL (6.5-8.0)
[2024-11-24 18:09] VITALS: BP 127/53; PULSE 74; RESP 16; O2SAT 100
--- NOTE | 2024-11-24 18:28 | PC.NURSE ---
Addendum entered by Doreen Schaefer RN 11/24/24 18:29: Patient is a 34 y.o F with PMH of migraines, constipation, lactose intolerance who is here for an episode of blood in mucousy stools for the past week. Patient with a history of the same. Lungs clear bilat. Respirations even and non-labored. Abdomen soft with positive bowel sounds. Patient c/o lower abdominal cramping with some nausea. Positive pedal pulses with no edema noted. Original Note: Medical History Moderate recurrent major depression Mild recurrent major depression Convulsion CRYSTAL (generalized anxiety disorder) Family history of diabetes mellitus Polyarthralgia Breast pain, right Fibromyalgia
[2024-11-24 19:08] VITALS: BP 131/70; PULSE 69; RESP 18; TEMP 37; O2SAT 100
[2024-11-24 19:58] LABS: Appearance Urine Clear; Glucose Urine UA Negative (Negative); PH 6.0 (5.0-9.0); Specific Gravity - Urine 1.025 (1.005-1.025); UMIC TRIGGER UACC YES
--- NOTE | 2024-11-24 22:21 | PC.NURSE ---
Patient resting in stretcher bed with her eyes closed, RR 16, even chest wall rise and fall, no s/s of apparent distress noted. Call dos santos in patient's reach, patient's spouse at beside.
--- NOTE | 2024-11-24 22:32 | ED.GIBLEED ---
HPI - GI Bleed General Chief complaint: GI Bleed Stated complaint: rectal bleeding Time Seen by Provider: 11/24/24 18:19 History of Present Illness HPI Narrative: Patient is a 34-year-old female presented today with having rectal bleeding diarrhea mucousy stool for the last 5 days. Had some lower abdominal pain. Fatigue. The pain radiates to the back. There is decreased appetite due to the diarrhea. Had multiple BMs. Patient from home. Decreased p.o. intake. No chest pain or shortness of breath. History of irritable bowel previous history of constipation. Patient from home. No history of traveling. No history of recent antibiotics Related Data Home Medications ?Medication ?Instructions ?Recorded ?Confirmed norgestimate 0.25 mg-ethinyl 1 tab PO DAILY 06/06/20 11/29/24 estradiol 0.035 mg tablet (Sprintec (28)) tacrolimus 0.1 % topical ointment topical 03/28/24 11/29/24 Previous Rx's ?Medication ?Instructions ?Recorded meloxicam 7.5 mg tablet 7.5 mg PO BID PRN pain 90 days 12/07/22 #180 tabs riboflavin (vitamin B2) 400 mg 400 mg PO DAILY 90 days #90 tabs 05/30/24 tablet amitriptyline 10 mg tablet 10 mg PO BEDTIME 90 days #90 tabs 07/19/24 ferrous sulfate 325 mg (65 mg 325 mg PO DAILY #90 tabs 09/05/24 iron) tablet omeprazole 20 mg capsule,delayed 20 mg PO DAILY 90 days #90 caps 10/04/24 release psyllium husk 2.6 gram/4.1 gram 1 tbsp PO BID #480 grams 11/25/24 oral powder carbamazepine 100 mg 100 mg PO TID 30 days #90 caps 11/29/24 capsule,extended release [id number] docusate sodium 100 mg capsule 100 mg PO BID PRN constipation 30 11/29/24 (Colace) days #60 caps duloxetine 60 mg capsule,delayed 60 mg PO DAILY 30 days #30 caps 11/29/24 release rizatriptan 10 mg tablet 5 - 10 mg (0.5 - 1 x 10 mg) PO Q2H 11/29/24 PRN migraine headache 21 days #12 tabs Allergies Allergy/AdvReac Type Severity Reaction Status Date / Time pregabalin Allergy Intermediate cough Verified 11/29/24 08:08 tramadol Allergy Intermediate headache Verified 11/29/24 08:08 Review of Systems Review of Systems: Positive abdominal pain PMFSH Past Medical History Attestation statement: The following information was validated with the patient. Medical History Moderate recurrent major depression Mild recurrent major depression Convulsion CRYSTAL (generalized anxiety disorder) Family history of diabetes mellitus Polyarthralgia Breast pain, right Fibromyalgia Surgical History History of removal of cyst History of section History of tubal ligation Family History Family History Father Hypertension Mother Heart disease CVD (cardiovascular disease) Diabetes Maternal Grandmother Diabetes Chronic mental illness Maternal Grandfather No problems noted. Paternal Grandmother No problems noted. Paternal Grandfather No problems noted. Social History Social History Housing: Apartment Alcohol intake: never Patient Tobacco Use Status: Never used Tobacco e-Cigarette/Vaping Use: Never Used Second Hand Smoke Exposure: No service: No Current occupational status: unemployed Cognitive needs: No Hearing needs: No Vision needs: Yes (Glasses) Physical Exam Exam: Exam: Appearance: Alert. Oriented X3. No acute distress. Eyes: Pupils equal, round and reactive to light. ENT: Pharynx normal. Neck: Normal inspection. Neck supple. No lymph nodes noted. No crepitus CVS: Normal heart rate and rhythm. Pulses normal. Normal S1 and S2 Respiratory: No respiratory distress. Breath sounds normal. No Wheezing. No rales Abdomen: Soft and nontender. No rigidity. No distention. good BS x4 Skin: Skin warm and dry. Normal skin color. Normal skin turgor. Extremities: No lower extremity edema. Neurovascular intact to all extremities. No Lacerations. No Rash Neuro: Oriented X 3. No motor deficit. No sensory deficit. Moving all extermities. No slurred speech Vital Signs: Vital Signs: Last Vital Signs Temp 98.5 F 11/25/24 06:17 Pulse 86 11/25/24 06:17 Resp 18 11/25/24 06:17 BP 104/58 L 11/25/24 06:17 Pulse Ox 100 11/25/24 06:17 O2 Del Method Room Air 11/25/24 06:17 BMI result Body Mass Index 22.6 Medications Administered Discontinued Medications Generic Name Dose Route Start Last Admin Trade Name Darian PRN Reason Stop Dose Admin Hydromorphone HCl 0.5 mg 11/24/24 22:31 11/25/24 00:30 Hydromorphone Hcl 0.5 Mg/0.5 Ml Syringe IVPUSH 11/24/24 22:32 0.5 mg ONCE ONE Administration Protocol Sodium Chloride 1,000 mls @ 999 mls/hr 11/24/24 22:45 11/25/24 03:14 Ns IV 11/24/24 23:45 Infused .Q1H1M JAQUELINE Infusion Sodium Chloride 1,000 mls @ 999 mls/hr 11/24/24 22:45 11/25/24 03:14 Ns IV 11/24/24 23:45 Infused .Q1H1M JAQUELINE Infusion Iohexol 85 ml 11/25/24 01:10 11/25/24 01:11 Iohexol 350 Mg/Ml 100 Ml Infus..Btl IV 11/25/24 01:11 85 ml ONCE ONE Administration Ondansetron HCl 4 mg 11/24/24 22:31 11/25/24 00:31 Ondansetron Hcl 4 Mg/2 Ml Vial IVPUSH 11/24/24 22:32 4 mg ONCE ONE Administration Medical Decision Making Medical Decision Making [facility] Narrative: Presented with lower abdominal pain diarrhea. Patient white count was 10.8. Hemoglobin is baseline at 13.4. Electrolytes are unremarkable. LFTs are normal. Lipase is normal. No evidence for biliary disease. test is negative. Patient is urine positive for blood but no evidence for infection. CT scan of the abdomen pelvis is pending. Differential Diagnosis Differential Diagnoses: The differential diagnosis associated with the presentation includes Colitis, anemia, obstruction, , biliary disease Admission/Observation Consideration of admission/observation: Escalation of care including admission/observation considered Lab Data [facility] Lab Attestation statement: I reviewed the patient's lab results. 11/24/24 13:01 11/24/24 13:01 Labs: Lab Results 11/24/24 11/24/24 Range/Units 13:01 19:50 WBC 10.8 (4.8-10.8) X10*3/uL RBC 4.78 (4.20-5.50) X10*6/uL Hgb 13.4 (12.0-16.0) g/dl Hct 38.6 (37.0-47.0) % MCV 80.8 (80.0-98.0) fL MCH 28.0 (27.0-33.0) pg MCHC 34.7 (31.0-35.0) g/dl RDW 12.8 (11.0-16.0) % Plt Count 269 (160-400) X10*3/uL MPV 9.1 L (9.4-12.3) fL Immature Gran % (Auto) 0.2 (0.0-0.4) % Neut % (Auto) 80.7 H (45-73) % Lymph % (Auto) 12.9 L (20-40) % [place] % (Auto) 4.9 (2-11) % Eos % (Auto) 0.9 (0-4) % Baso % (Auto) 0.4 (0-2) % Lymph # (Auto) 1.4 (1.2-4.9) X10*3/uL [place] # (Auto) 0.5 (0.1-1.2) X10*3/uL Eos # (Auto) 0.1 (0.0-0.4) X10*3/uL Baso # (Auto) 0.0 (0.0-0.2) X10*3/uL Abs Immat Gran (auto) 0.02 (0.00-0.03) X10*3/uL Absolute Neuts (auto) 8.7 H (2.0-8.3) x10*3/uL Absolute Nucleated RBC 0.000 (0.0-0.012) X10*3/uL Nucleated RBC % (auto) 0.0 (0.0-0.2) /100WBC Sodium 140 (135-145) mmol/L Potassium 4.1 (3.3-5.1) mmol/L Chloride 109 H (96-108) mmol/L Carbon Dioxide 25 (22-29) mmol/L Anion Gap 10 L (12-20) BUN 8 L (9-16) mg/dL Creatinine 0.66 (0.5-1.4) mg/dL Estim Creat Clear Calc 93.2 Estimated GFR > 60 Random Glucose 81 (60-115) mg/dL Calcium 9.6 D (8.4-10.2) mg/dL Total Bilirubin 0.3 (0.0-1.0) mg/dL AST 18 (5-31) U/L ALT 11 (0-31) U/L Alkaline Phosphatase 92 (39-117) U/L Total Protein 7.8 (6.5-8.0) g/dL Albumin 4.8 (3.5-5.0) g/dL Lipase 21 (8-78) U/L Beta HCG, Quant < 2 mIU/mL Urine Color Yellow Urine Appearance Clear Urine pH 6.0 (5.0-9.0) Ur Specific [place] 1.025 (1.005-1.025) Urine Protein Trace (Neg-Trace) mg/dL Urine Glucose (UA) Negative (Negative) mg/dL Urine Ketones >=160 (Negative) mg/dL Urine Blood Moderate (2+) H (Negative) Urine Nitrite Negative (Negative) Ur Leukocyte Esterase Negative (Negative) Urine RBC 6-10 H (0-2) /HPF Urine WBC 0-5 (0-5) /HPF Ur Squamous Epith Cells 0-2 (0-2) /HPF Urine Bacteria None Seen (None Seen) Hyaline Casts 0-2 (0-2) /LPF Urine Test NEGATIVE (NEGATIVE) Radiology Impression Discussion of test interpretation with radiology: I have reviewed the radiologist's reading. Independent Historian Clinical information obtained from an independent historian. History obtained from or confirmed by: Spouse External Record Review External record reviewed: Office record Discharge Plan Discharge Clinical Impression: Irritable bowel syndrome with alternating bowel habits, GIB (gastrointestinal bleeding) Patient Disposition: Home, Self-Care Instructions: Irritable Bowel Syndrome (ED) Additional Instructions: Drink plenty of fluids for the next several days. Try using fiber additives to help with regulation of your bowels. Return to the ER with any new or worsening symptoms including: worsening bleeding, passing out, fevers >100 degrees, chest pain or difficulty breathing. Constipation Remedy 1 Lb prunes 1 Lb pitless dates 1 Lb raisins 16 teabags Smooth Move tea brewed in 2 cups water 1 Cup brown sugar 1 Cup lemon juice Mix in a ink blender Put in freezer (never completely freezes) Can be used as a spread on crackers, toast, etc. (about 1-2 tablespoons per dose) Prescriptions: New psyllium husk 2.6 gram/4.1 gram powder 1 tbsp PO BID Qty: 480 0RF Rx Instructions: mix into at least 8 oz of water or juice before administering No Action ferrous sulfate 325 mg (65 mg iron) tablet 325 mg PO DAILY Qty: 90 0RF omeprazole 20 mg capsule,delayed release(DR/EC) 20 mg PO DAILY 90 Days Qty: 90 1RF docusate sodium [Colace] 100 mg capsule 100 mg PO BID PRN (Reason: constipation) 30 Days Qty: 60 0RF duloxetine 60 mg capsule,delayed release(DR/EC) 60 mg PO DAILY 30 Days Qty: 30 0RF meloxicam 7.5 mg tablet 7.5 mg PO BID PRN (Reason: pain) 90 Days Qty: 180 1RF norgestimate-ethinyl estradiol [Sprintec (28)] 0.25-35 mg-mcg tablet 1 tab PO DAILY amitriptyline 10 mg tablet 10 mg PO BEDTIME 90 Days Qty: 90 1RF tacrolimus 0.1 % ointment topical riboflavin (vitamin B2) 400 mg tablet 400 mg PO DAILY 90 Days Qty: 90 3RF carbamazepine 100 mg capsule, ER multiphase 12 hr 100 mg PO TID 30 Days Qty: 90 3RF rizatriptan 10 mg tablet 5 - 10 mg PO Q2H PRN (Reason: migraine headache) 21 Days Qty: 12 3RF Rx Instructions: max 3 tabs per day or 6 tabs per week Interventions: ED Discharge Assessment Last Done: 11/25/24 06:17 Discharge Date/Time: 11/25/24 06:18 Print Language: Citizen Of [place]
[2024-11-24 22:39] LABS: UPreg QC Valid YES
[2024-11-25] VITALS: BP 97/58; PULSE 73; TEMP 36.9; O2SAT 98
[2024-11-25 00:30] VITALS: RESP 18
[2024-11-25 01:00] VITALS: RESP 16
[2024-11-25] MEDS: iohexoL 350 MG/ML 100 ML INFUS..BTL 85 ML IV (01:11)
[2024-11-25 03:13] VITALS: BP 100/54; PULSE 91; RESP 18; TEMP 36.9; O2SAT 98
--- NOTE | 2024-11-25 03:14 | PC.NURSE ---
Resumed care of patient at 0300, she is currently resting comfortably, call dos santos within reach, vitals obtained and stable. Pt awaiting CT report at this time. IVF completed and ended in MAY.
[2024-11-25 06:09] VITALS: BP 104/58; PULSE 86; RESP 18; TEMP 36.9; O2SAT 100
[2024-11-25 06:17] VITALS: BP 104/58; PULSE 86; RESP 18; TEMP 36.9; O2SAT 100
== END 2024-11-25 06:18 | disposition home or self-care (01) ==
PROVIDERS: Emergency Medicine Emergency Medical Services; Physician Assistant; Emergency Provider Emergency Medicine; PCP Internal Medicine
DX: K58.9 Irritable bowel syndrome, unspecified (principal); K92.2 Gastrointestinal hemorrhage, unspecified; R10.2 Pelvic and perineal pain; R11.0 Nausea; Z79.899 Other long term (current) drug therapy
CPT/HCPCS: 36415; 74177; 80053; 81001; 81025; 83690; 84702; 85025; 96361; 96374; 96375; 99285; J1171; J2405; Q9967

== ENCOUNTER → 2024-11-25 01:00 | Outpatient (BNV) | payer OTHER, SELFPAY | PROVIDERS: Emergency Provider Emergency Medicine; PCP Internal Medicine; Visit Provider Radiology Diagnostic Radiology | DX: K92.1 Melena (principal); R10.9 Unspecified abdominal pain | CPT/HCPCS: 74177 ==

== ENCOUNTER 2024-11-29 07:44 | Outpatient (AMB) | payer OTHER, SELFPAY ==
--- OUTSIDE RECORDS SUMMARY | 2024-11-29 07:47 | XMS_ITS | Clinical Summary ---
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 It is not the complete legal health record.[facility]
--- NOTE | 2024-11-29 08:04 | MHC.OFFVIS ---
Vital Signs 11/29/24 08:05 Weight 120 lb BP 110/64 Blood Pressure Location Rt brachial Position Sitting Pulse 64 Pulse Source Pulse Oximeter Pulse Oximetry (%) 95 Oxygen Delivery Method Room Air Intake Visit Reasons: 6 mnts f/u Intake Note: Patient presents follow up headache medication. 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 Accompanied by: Self / Same As Patient Allergies pregabalin Allergy (Intermediate, Verified 11/29/24 08:08) cough tramadol Allergy (Intermediate, Verified 11/29/24 08:08) headache Medication List - Last Reconciled 11/29/24 by EBENEZER Rodriguez amitriptyline 10 mg PO BEDTIME 90 days carbamazepine ER 100 mg PO BID 30 days docusate sodium (Colace) 100 mg PO BID PRN 30 days duloxetine 60 mg PO DAILY 30 days ferrous sulfate 325 mg PO DAILY magnesium oxide 400 mg PO BEDTIME 90 days meloxicam 7.5 mg PO BID PRN 90 days norgestimate-ethinyl estradiol 0.25-0.035 mg (Sprintec (28)) 1 tab PO DAILY omeprazole 20 mg PO DAILY 90 days psyllium husk 1 tbsp PO BID riboflavin (vitamin B2) 400 mg PO DAILY 90 days sumatriptan succinate 50 - 100 mg orally at onset of headache, may repeat in 2 hrs PRN; max 2 tabs per day or 4 tabs/week (may take with Ibuprofen) 30 days tacrolimus 0.1% topical topiramate 25 - 50 mg (1 - 2 x 25 mg) PO BEDTIME 30 days HPI Comments Details: Right-handed 34-year-old female presents for follow-up of migraine and left facial pain. Patient reports she is considering undergoing left knee meniscus repair, but has delayed this due to concern that she lives in a 4th-floor walk-up apartment. She also had [place] [facility] [place] due to abdominal pain, rectal pain, and rectal bleeding for 5-6 days. She states she was diagnosed with IBS and was advised to start Metamucil and a spread of blended prune/date/reason/smooth move tea/brown sugar/lemon juice. And GI has suggested she start a FODMAP diet. Since the last visit, the patient has started carbamazepine ER 100 mg b.i.d., which he states is effective. However, if she is even 15 minutes late with taking it, she will have breakthrough left facial pain. She reports she is tolerating the carbamazepine well. She states her migraine attacks are stable. However, she states that sumatriptan is not always effective. When she tried to take two tabs of sumatriptan at once, this caused a much worse headache. Reports she was just started on amitriptyline 10 mg q.h.s. for fibromyalgia symptoms.. [place] [facility] [place]/brain wo/w con No enhancing lesion or signal abnormality in the trigeminal cranial nerves. No acute brain abnormality or abnormal enhancement. Negative exam. MR/MR angio head wo con No main cerebral artery occlusion or embolus or gross aneurysm. Left AICA, type II-III There is a complete chilkoot of [place]. 05/30/2024, previous HPI: Right-handed 32-yr-old female presents for follow-up of migraine, however states she would like to discuss a new headache and sleep symptoms. Pt reports her typical migraine attacks were improved since starting B2, Mag, Topiramate 25mg qhs, and prn sumatriptan. Overall tolerating well, but can feel a bit dizzy- off balance at times. Unfortunately, she ran out of all her meds 3 weeks ago, and headaches are again daily to every other day. She has also been feeling tired and generally weak. She recently underwent a HST on 05/24/2024, which was ordered by her PCP. She has also been recently referred to orthopedics to evaluate knee pain. In the last 2 months, she has had a new head pain. It is left sided, left lower face including left mouth and upper lower jaw/teeth, as well as left eye, which moves into the left ear and pentecostal. The pain throbbing, sharp pain, which comes and goes. The pain comes on slowly and gradually worsens over 10 minutes to 5 hours. She states the attacks are random. She cannot touch the area or sleep on her left side. Aggravating factors: eating, talking, flossing, cold wind. Was told she has bruxism. She saw her dentist, who did x-rays, which per pt were clear. They advised her to see us. Typical migraine headache characteristics: Prodrome symptoms: None Aura: Colored spots and blurry vision Headache characteristics: Moderate to severe pulsating, pressure, stabbing headache in either right or left sided, temporal, right greater than left, retro-orbital, top of the head, back of the head. Rarely in frontal region. Associated symptoms: Bilateral watery eyes, droopy eyelid, Photophobia, phonophobia, allodynia, nausea, not great and space dizziness, brain fog, fatigue, activity intolerance- when severe interferes with daily activities. Postdrome: Unsure Aggravating factors: Heavy lifting can increase headache pressure Lack of sleep, not eating, stress, weather changes Menstrual triggers: In the past, but not currently Time of day: No specific time of day Second headache type characteristics: Severe, Right greater than left unilateral shocking pain, which lasts 1-2 minutes. It occurs 2-3 times per week. 03/26/2023, initial HPI: Right-handed 32-yr-old female presents for new pt evaluation of headache disorder. She has had headaches since childhood, but for many years she has had a constant headache, which does vary throughout the day. Pertinent patient endorsements: Fibromyalgia, neck and back pain. Memory difficulties. Weight gain Constipation Endometriosis, Depression and anxiety, Concussion x2 in early adolescents in late 20s. At age 28, had 1 episode of brief loss of consciousness x's < 5 min, associated with posturing, and postictal fatigue. No interictal tongue biting or incontinence. She was tried on an AED for some time, but is no longer on any. Sleep difficulties including difficulty initiating and maintaining sleep, but denies snoring or apneas or gasping arousals. Pertinent denies include: Denies diplopia. Denies history of clotting disorders, thyroid disease, diabetes, cardiovascular disorders. Headache questionnaire: Preceding causes? Denies any specific precipitating causes Previous work-up? Brain MRI- showed pineal cyst Typical headache characteristics: Prodrome symptoms? None Aura? Colored spots and blurry vision Pain intensity? Moderate to severe Location, quality, characteristics? Pulsating, pressure, stabbing headache in either right or left sided, temporal, right greater than left, retro-orbital, top of the head, back of the head. In rarely frontal region. Associated symptoms? Photophobia, phonophobia, allodynia, nausea, not great and space dizziness, brain fog, fatigue, activity intolerance. Focal weakness, Parethesias, Autonomic s/s? Bilateral watery eyes, droopy eyelid Postdrome? Unsure Triggers? Lack of sleep, not eating, stress, weather changes Any positional, valsalva, exertional, sexual activity triggers? Heavy lifting can increase headache pressure Menstrual triggers? In the past, but not currently Time of day? No specific time of day Duration? Daily Frequency? Daily How does headache impact your life? Interferes with daily activities Second headache type characteristics: Severe, Right greater than left unilateral shocking pain, which lasts 1-2 minutes. It occurs 2-3 times per week. Current acute medication use/interventions: Ibuprofen 400 mg q.h.s. and most days as well. Previous acute medication use: Naproxen caused GI upset. Tramadol caused headache. Current preventative medication use: Duloxetine 30 mg daily- for mood and fibromyalgia. Previous preventative medication use: Pregabalin caused cough. Non-pharmacological interventions: Rest Family planning? None Family history of migraine or other headache disorder: Sister, daughter, uncle PFSH Medical History Moderate recurrent major depression Mild recurrent major depression Convulsion CRYSTAL (generalized anxiety disorder) Family history of diabetes mellitus Polyarthralgia Breast pain, right Fibromyalgia Surgical History History of removal of cyst History of section History of tubal ligation Family History Father Hypertension Mother Heart disease CVD (cardiovascular disease) Diabetes Maternal Grandmother Diabetes Chronic mental illness Maternal Grandfather No problems noted. Paternal Grandmother No problems noted. Paternal Grandfather No problems noted. Social History Housing: Apartment Alcohol intake: never Patient Tobacco Use Status: Never used Tobacco e-Cigarette/Vaping Use: Never Used Second Hand Smoke Exposure: No service: No Current occupational status: unemployed Cognitive needs: No Hearing needs: No Vision needs: Yes (Glasses) Physical Exam Vital Signs: Last Vital Signs Pulse 64 11/29/24 08:05 BP 110/64 11/29/24 08:05 Pulse Ox 95 11/29/24 08:05 Oxygen Delivery Method Room Air 11/29/24 08:05 Const Orientation/consciousness: patient oriented x3 HEENT Head: Yes normocephalic Resp Effort & Inspection: normal respiratory effort and able to speak in complete sentences Neuro Other: Mild signs of lower teeth wearing, indicating bruxism. Mild tenderness upon palpation of left TMJ/massive region. Bilateral posterior cervical tightness- with left upper trap tightness upon palpation. General: patient oriented x3 Cranial nerves: Yes CN's II-XII intact bilaterally Cognition (Neuro): normal cognition Gait exam (Neuro): Normal gait present Motor exam (neuro): 5/5 motor strength present throughout Pupils: Normal pupillary reactivity/response: bilateral Psych Appearance: grossly normal Mental Status: mental status grossly normal Speech and movement: Normal speech and movement present Affect: normal affect Attitude: cooperative Thought process: Normal thought process present Results Reviewed Results Reviewed: 06/04/2023, brain MRI without contrast- Minimal nonspecific white matter changes Assessment & Plan Assessment & Plan (1) Migraine with aura, not intractable, without status migrainosus: Code(s): G43.109 - Migraine with aura, not intractable, without status migrainosus Category: Medical Plan Discussion notes Reviewed interval brain MRI with and without contrast and brain MRA without contrast; results were unremarkable, other than the reported presence of a Left AICA, type II-III Patient has left facial pain that has been responsive to carbamazepine; however, even with a very short delay in taking the carbamazepine, the patient has breakthrough left facial pain symptoms. Thus, we discussed strategies to optimize her left facial pain symptoms. The patient agrees to increase the frequency of carbamazepine. Patient has already done some reading on her own. Thus, she is open to having a consultation with Dr. Knowles, a neurosurgeon at [facility], to discuss surgical interventions for left trigeminal neuralgic facial pain. Patient advised to watch Dr. Knowles's YouTube video on surgical interventions for trigeminal neuralgia. For overall headache management: Discussed importance of good self-care, including but not limited to maintaining a healthy diet, adequate fluid intake, adequate sleep, and engaging in regular physical activity. For headache triggers: Track headaches, especially after any treatment regimen changes. Migraine [employer] is one of many headache tracking apps. For sleep difficulties: We will review sleep study as ordered by PCP- when report available. For left-sided headache, c/w trigeminal neuralgia: Use an OTC mouth guard during sleep. Increase carbamazepine 100 mg from 100 mg twice a day to 100 mg 3 times a day Check CBC, CMP, Tegretol level in 1 month We will request neurosurgical consultation with Dr. Knowles, at [facility] For acute headache treatment: Discontinue sumatriptan p.r.n. may adjunct with ibuprofen. Trial Rizaatriptan 10mg tab, 1/2 - 1 tab (5-10mg) at onset of headache, may repeat in 2 hours. Max of 3 tabs (30mg) per 24 hours. You may take Rizaatriptan with OTC Tylenol 650-1,000mg every 4-6 hours, Ibuprofen (liquid gels) 600-800mg every 6-8 hours as needed Potential adverse effects of triptans, include but are not limited to nausea, fatigue, chest tightness/tingling (usually passes within a few minutes), medication overuse headaches. Previous acute migraine medication trials: Naproxen caused GI upset, sumatriptan-not always effective Acute migraine medication contraindications: None at this time For headache prevention medication: Continue Riboflavin 400mg qam Hold Magnesium 400mg qhs times 1-2 weeks until GI upset resolves. Continue duloxetine 60 mg q.d. as ordered- for mood and fibromyalgia Continue amitriptyline 10 mg daily at bedtime Amitriptyline 10 mg daily at bedtime-recently started by PCP for fibromyalgia Previous migraine prevention medication trials: Pregabalin caused cough. Migraine prevention medication contraindications: Would use caution in constipating agents, such as Aimovig or Qulipta. Will follow-up upon review of above and patient to follow-up in clinic in 3-6 months or sooner prn. Orders: Orders Complete Blood Count Auto Diff Today G89.29 - Other chronic pain, R51.9 - Headache, unspecified, Z79.899 - Other terminal carman (current) drug therapy Carbamazepine Tegretol Today G40.909 - Epilepsy, unspecified, not intractable, without status epilepticus, G89.29 - Other chronic pain, R51.9 - Headache, unspecified, Z79.899 - Other terminal carman (current) drug therapy Comprehensive Epps. Panel Fast Today G89.29 - Other chronic pain, R51.9 - Headache, unspecified, Z79.899 - Other terminal carman (current) drug therapy Referrals Neurosurgery Referral G50.0 - Trigeminal neuralgia Medications: New rizatriptan max 3 tabs per day or 6 tabs per week 5 - 10 mg (0.5 - 1 x 10 mg) PO Q2H PRN 12 tabs 3RF migraine headache 21 days Changed From carbamazepine ER 100 mg PO BID 30 days 60 caps 3RF To carbamazepine ER 100 mg PO TID 90 caps 3RF 30 days Discontinued sumatriptan succinate Discontinued Reason: Doctor's Order (0.5 - 1 x 100 mg) 50 - 100 mg orally at onset of headache, may repeat in 2 hrs PRN; max 2 tabs per day or 4 tabs/week (may take with Ibuprofen) 30 days 12 tabs 6RF migraine headache topiramate Discontinued Reason: Doctor's Order 25 - 50 mg (1 - 2 x 25 mg) PO BEDTIME 30 days 60 tabs 3RF magnesium oxide may hold for loose stools Discontinued Reason: Doctor's Order 400 mg PO BEDTIME 90 days 90 tabs 3RF Coding Level of Care Code Tele Est Pt Level 4 (42547) Diagnoses Migraine with aura, not intractable, without status migrainosus G43.109
[2024-11-29 08:05] VITALS: BP 110/64; PULSE 64; O2SAT 95
== END 2024-11-29 09:00 | disposition home or self-care (01) ==
LOC: HO.HSMS 07:45
PROVIDERS: PCP Internal Medicine; Visit Provider Nurse Practitioner Family
DX: G43.109 Migraine with aura, not intractable, without status migrainosus (principal)
CPT/HCPCS: 99214